=== PATIENT | male | born 1950 | race Caucasian/White ===

== ENCOUNTER → 2017-06-22 14:26 | Outpatient (CLI) | payer MEDICARE, OTHER, SELFPAY ==
--- NOTE | 2017-06-23 17:50 | DI.NM.S_ITS ---
DATE OF SERVICE: 06/22/2017 PROCEDURE: Exercise perfusion study. INDICATIONS: Atrial fibrillation with underlying diabetes mellitus, hypertension, hyperlipidemia. RADIOPHARMACEUTICAL: 26.0 mCi technetium-99m Myoview IV was injected at stress and 26.8 mCi technetium-99m Myoview IV was injected at rest. CARDIAC STRESS: Patient underwent exercise perfusion study under the supervision of an attending staff. He walked on Zeke protocol for 5 minutes 32 seconds achieved 93% of target heart rate with normal blood pressure response. Patient achieved function aerobic impairment of +25 and 7 METs of workload. Patient felt shortness of breath. Baseline rhythm was sinus. Stress EKG revealed some nonspecific ST-T changes. There were some intermittent PACs without any significant sustained supraventricular or ventricular arrhythmias. RAW DATA: There was motion of heart seen. Increased subdiaphragmatic activity. Increased soft tissue shadow around heart. Patient's weight is 251 pounds. GATED STUDY: Stress LV ejection fraction 68 and resting LV ejection fraction 67%. I don't see any obvious wall motion abnormalities. No transient ischemic dilatation. TID ratio is 0.88, which is within normal limits. Resting end- diastolic volume is 112 mL. Lung/heart ratio is 0.27, which is within normal limits. MYOCARDIAL PERFUSION SCAN: Stress supine, resting supine images revealed small- sized mildly decreased perfusion of distal inferior lateral wall which got resolved during prone images suggested that tissue attenuation artifact. Prone images revealed normal myocardial perfusion. CONCLUSION: I will call this study a normal myocardial perfusion study with evidence of diaphragmatic tissue attenuation artifact which got resolved during prone images. Overall left ventricular (LV) function is preserved. As far as perfusion scan is concerned, this is a low-risk myocardial perfusion scan. Arian Leong - TALENT ACQUISITION LEAD/yara/ab doc#: [id number]/job#: [id number] dd: 06/23/2017 12:45:00 dt: 06/23/2017 17:41:00 DICTATING MD/COPIES TO: Jarret Costa MD COPIES MNE: LUIS ARMANDO
== END ==
PROVIDERS: PCP Family Medicine; Visit Provider Internal Medicine Cardiovascular Disease
DX: I48.91 Unspecified atrial fibrillation (principal); E11.9 Type 2 diabetes mellitus without complications; I10 Essential (primary) hypertension; E78.5 Hyperlipidemia, unspecified
CPT/HCPCS: 78452; 93016; 93017; 93018; A9502

== ENCOUNTER → 2017-09-23 09:38 | Outpatient (CLI) | payer MEDICARE, OTHER, SELFPAY ==
[2017-09-23 10:24] LABS: Add Manual Diff / Slide Review NO; Basophils Percent Auto 0.7 % (0-2); Eosinophils Percent Auto 6.8 % (2-4); Hematocrit 40.6 % (41-53); Hemoglobin 13.8 g/dL (13.5-17.5); Lymphocytes Percent Auto 17.1 % (25-40); Mean Corpuscular HGB Conc 33.9 % (30-36); Mean Corpuscular Hemoglobin 29.9 PG (26-34); Mean Corpuscular Volume 88.3 fL (80-100); Monocytes Percent Auto 6.1 % (3-14); Neutrophils Absolute Auto 5100 /uL (3000-5900); Neutrophils Percent Auto 69.3 % (50-75); Platelet Count 212 X10^3/uL (150-400); Red Cell Distribution Width 14.8 % (11.6-14.8); White Blood Cell Count 7.4 X10^3/uL (4.5-11.0)
[2017-09-23 10:53] LABS: Hemoglobin A1C% w Est Avg Glu 6.2 % (4.0-6.0)
[2017-09-23 11:01] LABS: Alanine Aminotransferase 45 IU/L (21-72); Albumin Globulin Ratio 1.3 (1.0-2.8); Alkaline Phosphatase 65 U/L (38-126); Aspartate Aminotransferase 33 IU/L (17-59); Bilirubin Total 0.6 mg/dL (0.2-1.3); Blood Urea Nitrogen 19 mg/dL (9-20); Calcium 9.6 mg/dL (8.4-10.2); Carbon Dioxide 29 mmol/L (22-32); Chloride 103 mmol/L (98-107); Cholesterol 108 mg/dL (140-199); Estimated Glomerular Filt Rate > 60.0 mL/min (>60); Globulin 3.1 g/dL (1.7-4.1); Glucose 101 mg/dL (80-110); HDL Cholesterol 32 mg/dL (40-60); HEMOLYSIS < 15 (0-50); LDL Cholesterol Calculated 60 mg/dL (<100); Potassium 4.4 mmol/L (3.4-5.1); Sodium 142 mmol/L (137-145); Total Protein 7.1 g/dL (6.3-8.2); Triglycerides 78 mg/dL (35-150)
[2017-09-23 11:19] LABS: Creatinine Urine Random 116.4 mg/dL
[2017-09-23 11:24] LABS: Microalbumin Urine Random 0.7 mg/dL (0-1.6)
== END ==
PROVIDERS: PCP Family Medicine; Visit Provider Family Medicine
DX: E11.9 Type 2 diabetes mellitus without complications (principal); E78.2 Mixed hyperlipidemia
CPT/HCPCS: 36415; 80053; 80061; 82043; 82570; 83036; 85025

== ENCOUNTER → 2017-12-06 07:52 | Outpatient (CLI) | payer MEDICARE, OTHER, SELFPAY ==
[2017-12-06 09:48] LABS: Blood Urea Nitrogen 22 mg/dL (9-20); Calcium 9.3 mg/dL (8.4-10.2); Carbon Dioxide 25 mmol/L (22-32); Chloride 101 mmol/L (98-107); Estimated Glomerular Filt Rate > 60.0 mL/min (>60); Glucose 210 mg/dL (80-110); HEMOLYSIS < 15 (0-50); Potassium 4.1 mmol/L (3.4-5.1); Sodium 141 mmol/L (137-145)
== END ==
PROVIDERS: PCP Family Medicine; Visit Provider Internal Medicine Cardiovascular Disease
DX: I10 Essential (primary) hypertension (principal)
CPT/HCPCS: 36415; 80048

== ENCOUNTER → 2018-05-30 11:14 | Outpatient (CLI) | payer MEDICARE, OTHER, SELFPAY ==
[2018-05-30 12:22] LABS: Hemoglobin A1C% w Est Avg Glu 6.3 % (4.0-6.0)
[2018-05-30 12:26] LABS: Blood Urea Nitrogen 20 mg/dL (9-20); Calcium 9.7 mg/dL (8.4-10.2); Carbon Dioxide 25 mmol/L (22-32); Chloride 103 mmol/L (98-107); Estimated Glomerular Filt Rate > 60.0 mL/min (>60); Glucose 95 mg/dL (80-110); HEMOLYSIS < 15 (0-50); Potassium 4.1 mmol/L (3.4-5.1); Sodium 140 mmol/L (137-145)
[2018-05-30 12:44] LABS: Vitamin D 25 Hydroxy (D3) 50.1 ng/mL (30.0-100.0)
[2018-05-30 12:57] LABS: Prostate Specific Antigen Scrn 1.49 ng/mL (0.1-4.0)
== END ==
PROVIDERS: PCP Student in an Organized Health Care Education/Training Program; Visit Provider Internal Medicine Cardiovascular Disease
DX: I48.92 Unspecified atrial flutter (principal); E55.9 Vitamin D deficiency, unspecified; E11.9 Type 2 diabetes mellitus without complications; I10 Essential (primary) hypertension; Z12.5 Encounter for screening for malignant neoplasm of prostate
CPT/HCPCS: 36415; 80048; 82306; 83036; G0103

== ENCOUNTER → 2018-09-29 12:29 | Outpatient (CLI) | payer MEDICARE, OTHER, SELFPAY | PROVIDERS: PCP Student in an Organized Health Care Education/Training Program; Visit Provider Physician Assistant | DX: L02.01 Cutaneous abscess of face (principal) | CPT/HCPCS: 87070; 87077; 87147; 87186; 87205 ==

== ENCOUNTER 2018-10-04 13:01 | Day surgery (SDC) | payer MEDICARE, OTHER, SELFPAY ==
--- NOTE | 2018-10-04 | PATH_ITS ---
[facility] Accession Number: [id number] . 01 Material submitted: . PART A: colon - POLYP ASCENDING COLON X3 PART B: sigmoid colon - POLYP SIGMOID COLON . 02 Diagnosis: A. Biopsy, Polyps Ascending Colon: Tubular adenoma involving single biopsy fragment. Single polypoid-shaped fragment of colon mucosa associated with prominent mucosal lymphoid aggregate. Single fragment of normal appearing colon mucosa consistent with mucosal polypoid redundancy. . B. Biopsy, Polyp, Sigmoid Colon: Hyperplastic polyp. MRV/10/05/2018 . 02 Electronically signed: . Paul Estrella MD, Pathologist NPI- [id number] . 01 Gross description: . Part A: POLYP ASCENDING COLON X3: Received in formalin are 3 fragment(s) of castellanos, soft tissue measuring 0.1 x 0.1 x 0.1 cm to 0.3 x 0.3 x 0.3 cm which is entirely submitted and submitted entirely in 1 cassette(s) Part B: POLYP SIGMOID COLON: Received in formalin is 1 fragment(s) of castellanos, soft tissue measuring 0.3 x 0.2 x 0.2 cm which is entirely submitted and submitted entirely in 1 cassette(s) /DMC /DMC . 02 Pathologist provided ICD-10: D12.2 . 02 CPT . 770593, [id number] Performed at: 01 [facility] [address] [place] [address], [place], [place] [id number] MD Jameson Martin MD Phone: [phone] Performed at: 02 [facility] [address] [place], [place] [id number] MD Unique Trujillo MD Phone: [phone]
[2018-10-04 13:19] VITALS: BP 126/81; PULSE 79; RESP 16; TEMP 36.2; O2SAT 96; BMI 36.1
[2018-10-04] MEDS: SODIUM CHLORIDE 0.9% 1,000 ML 200 ML IV (13:30)
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
--- NOTE | 2018-10-04 14:06 | PM.OP.ENDO ---
Operative Date/Time/Diagnoses Date of procedure: 10/04/18 Time of procedure: 14:06 Pre-op diagnosis: See indication and findings Procedure & Clinicians Study performed: Colonoscopy Same procedure as scheduled: Yes Indications: Need for colorectal cancer screening Surgeon: Ana Mendoza Procedure Notes Procedure in detail: After informed consent was obtained the patient was placed in left lateral decubitus position. The video colonoscope was introduced the rectum slowly advanced cecum. On slow withdrawal mucosa was carefully examined. The scope was removed. The patient tolerated the procedure well. Blood loss none Complications none Sedation Total sedation time 23 minutes Fentanyl 100 mg Versed 4 mg IV titration Findings 1. Three ascending colon polyps from 2-5 mm in size all removed completely with Jumbo biopsy forceps 2. 6 mm sigmoid polyp Jumbo biopsy removed completely Otherwise negative colonoscopy to cecum Most likely Mr. Leong will need follow-up colonoscopy in 5 years He may restart his Eliquis in 2 days.
[2018-10-04 15:15] VITALS: BP 106/69; PULSE 70; RESP 16; TEMP 37; O2SAT 95
[2018-10-04 15:39] VITALS: BP 99/65; PULSE 68; RESP 16; TEMP 36.1; O2SAT 95
== END 2018-10-04 16:00 | disposition home or self-care (01) ==
LOC: ENDO 13:04
PROVIDERS: PCP Student in an Organized Health Care Education/Training Program; Visit Provider Internal Medicine Gastroenterology
PROC: 0DJD8ZZ Inspection of Lower Intestinal Tract, Via Natural or Artificial Opening Endoscopic (ICD-10-PCS; CPT 45378; principal; 2018-10-04 14:30)
DX: Z12.11 Encounter for screening for malignant neoplasm of colon (principal); K63.5 Polyp of colon; E11.9 Type 2 diabetes mellitus without complications; N40.1 Benign prostatic hyperplasia with lower urinary tract symptoms; R35.1 Nocturia; I10 Essential (primary) hypertension; E78.5 Hyperlipidemia, unspecified; Z79.84 Long term (current) use of oral hypoglycemic drugs; Z79.01 Long term (current) use of anticoagulants; D12.2 Benign neoplasm of ascending colon
CPT/HCPCS: 45380; 88305

== ENCOUNTER → 2018-11-21 09:29 | Outpatient (CLI) | payer MEDICARE, OTHER, SELFPAY ==
[2018-11-21 10:43] LABS: Hemoglobin A1C% w Est Avg Glu 6.5 % (4.0-6.0)
[2018-11-21 10:58] LABS: Blood Urea Nitrogen 20 mg/dL (9-20); Calcium 9.5 mg/dL (8.4-10.2); Carbon Dioxide 24 mmol/L (22-32); Chloride 105 mmol/L (98-107); Estimated Glomerular Filt Rate > 60.0 mL/min (>60); Glucose 124 mg/dL (80-110); HEMOLYSIS < 15 (0-50); Potassium 4.1 mmol/L (3.4-5.1); Sodium 141 mmol/L (137-145)
[2018-11-21 12:01] LABS: Creatinine Urine Random 95.1 mg/dL
[2018-11-21 12:05] LABS: Microalbumi Creatinin Ratio Ur 7.3 ug/mg CR (<30); Microalbumin Urine Random 0.7 mg/dL (0-1.6)
== END ==
PROVIDERS: PCP Student in an Organized Health Care Education/Training Program; Visit Provider Student in an Organized Health Care Education/Training Program
DX: E11.9 Type 2 diabetes mellitus without complications (principal); I10 Essential (primary) hypertension
CPT/HCPCS: 36415; 80048; 82043; 82570; 83036

== ENCOUNTER 2019-03-23 17:43 | Emergency (ER) | payer MEDICARE, OTHER, SELFPAY ==
[2019-03-23 18:15] VITALS: BP 146/69; PULSE 80; RESP 17; TEMP 36.4; O2SAT 98
--- NOTE | 2019-03-23 18:32 | DI.RAD.S_ITS ---
PROCEDURE: XR FINGER LT MIN 2V INDICATIONS: laceration TECHNIQUE: AP hand, 2 views of the left third finger(s) acquired. COMPARISON: None. FINDINGS: Bones: No fractures or dislocations. No suspicious bony lesions. Soft tissues: No suspicious soft tissue calcifications. A small 2 mm foreign body seen anterior to the third distal phalange. IMPRESSION: 1. No fracture. No osseous lesion. If symptoms and/or clinical suspicion for pathology persists, further assessment with repeat radiographs (7-10 days) or advanced imaging (e.g. CT, MRI or bone scan) may be helpful. 2. 2 mm radiodense foreign body. Dictated by: Natalie Bain MD, PhD on 03/23/2019 at 19:57 Approved by: Natalie Bain MD, PhD on 03/23/2019 at 19:58
[2019-03-23] MEDS: BACITRACIN OINT 0.9 GM PCKT 1 APPLIC TOP (18:56)
[2019-03-23] MEDS: LIDO 1%/SOD BICARB 8.4% (10ML) 10 ML SYRINGE INJ (18:56)
--- NOTE | 2019-03-23 19:17 | PC.NURSE ---
bleeding from left hand moderate, difficulty slowing. Estuardo YOGA COORDINATOR applied tourniquet at 1830 to left 3rd base of finger, bleeding stopped. ring removed from 4th finger, lac on palm of left hand bleeding controlled.
[2019-03-23] MEDS: BACITRACIN OINT 0.9 GM PCKT 2 APPLIC TOP (20:08)
--- NOTE | 2019-03-23 20:10 | PC.NURSE ---
Finger wound covered with bacitracin, tube gauze, finger splint, and coban. palm laceration covered with bacitracin, non-adherent pad, and kerlex.
[2019-03-23 20:42] VITALS: BP 132/76; PULSE 77; RESP 16; O2SAT 99
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
== END 2019-03-23 20:43 | disposition home or self-care (01) ==
PROVIDERS: Emergency Provider Nurse Practitioner Family; PCP Student in an Organized Health Care Education/Training Program
DX: S61.213A Laceration without foreign body of left middle finger without damage to nail, initial encounter (principal); S61.012A Laceration without foreign body of left thumb without damage to nail, initial encounter; W31.2XXA Contact with powered woodworking and forming machines, initial encounter
CPT/HCPCS: 12002; 73140; 99283; 99284

== ENCOUNTER → 2019-09-04 10:59 | Outpatient (CLI) | payer MEDICARE, OTHER, SELFPAY ==
[2019-09-04 12:29] LABS: Hemoglobin A1C% w Est Avg Glu 7.1 % (4.0-6.0)
[2019-09-04 12:30] LABS: Blood Urea Nitrogen 25 mg/dL (9-20); Calcium 9.9 mg/dL (8.4-10.2); Carbon Dioxide 25 mmol/L (22-32); Chloride 104 mmol/L (98-107); Estimated Glomerular Filt Rate > 60.0 mL/min (>60); Glucose 150 mg/dL (80-110); HEMOLYSIS < 15 (0-50); Potassium 4.4 mmol/L (3.4-5.1); Sodium 138 mmol/L (137-145)
[2019-09-04 14:08] LABS: Creatinine Urine Random 125.7 mg/dL
[2019-09-04 14:18] LABS: Microalbumi Creatinin Ratio Ur 6.3 ug/mg CR (<30); Microalbumin Urine Random 0.8 mg/dL (0-1.6)
== END ==
PROVIDERS: PCP Student in an Organized Health Care Education/Training Program; Referring Provider Student in an Organized Health Care Education/Training Program; Visit Provider Student in an Organized Health Care Education/Training Program
DX: E11.9 Type 2 diabetes mellitus without complications (principal); I10 Essential (primary) hypertension
CPT/HCPCS: 36415; 80048; 82043; 82570; 83036

== ENCOUNTER 2019-09-19 03:01 | Emergency (ER) | payer MEDICARE, OTHER, SELFPAY ==
[2019-09-19] VITALS (19 sets, daily range): BP systolic 116–170; BP diastolic 55–80; PULSE 63–81; RESP 15–18; TEMP 36.2; O2SAT 95–97; BMI 30.1
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
[2019-09-19] MEDS: methylPREDNISolone 125 MG/2 ML VIAL IV (03:26)
[2019-09-19] MEDS: KETOROLAC 60 MG/2 ML VIAL 15 MG IV (03:26)
[2019-09-19] MEDS: diphenhydrAMINE 50 MG/ML VIAL 25 MG IV (03:26)
[2019-09-19] MEDS: SODIUM CHLORIDE 0.9% 1,000 ML 150 ML IV (03:27)
[2019-09-19] MEDS: FAMOTIDINE 20 MG/50 ML PIGGYBACK 200 MG IV (03:27)
[2019-09-19 03:28] LABS: Add Manual Diff / Slide Review NO; Basophils Absolute Auto 100 /uL (0-100); Basophils Percent Auto 0.5 % (0-2); Eosinophils Absolute Auto 0 /uL (0-450); Eosinophils Percent Auto 0.2 % (2-4); Hematocrit 40.6 % (41-53); Hemoglobin 13.8 g/dL (13.5-17.5); Lymphocytes Absolute Auto 800 /uL (1100-4500); Lymphocytes Percent Auto 7.6 % (25-40); Mean Corpuscular HGB Conc 33.9 % (30-36); Mean Corpuscular Hemoglobin 29.8 PG (26-34); Monocytes Absolute Auto 300 /uL (0-900); Monocytes Percent Auto 2.5 % (3-14); Neutrophils Absolute Auto 9700 /uL (1500-7000); Neutrophils Percent Auto 89.2 % (50-75); Platelet Count 202 X10^3/uL (150-400); Red Blood Cell Count 4.62 X10^6/uL (4.5-5.9); Red Cell Distribution Width 14.8 % (11.6-14.8); White Blood Cell Count 10.9 X10^3/uL (4.5-11.0)
[2019-09-19 03:42] LABS: Appearance Urine UA CLOUDY; Bilirubin Urine UA NEGATIVE (NEGATIVE); Glucose Urine UA NEGATIVE (Negative); Ketones Urine UA TRACE (NEGATIVE); Leukocyte Esterase Urine UA TRACE (NEGATIVE); Nitrite Urine UA NEGATIVE (Negative); Occult Blood Urine UA 3+ (Negative); Protein Urine UA 1+ (Negative); Urobilinogen Urine UA 0.2 E.U./dL (0.2); pH Urine UA 5.5 (4.5-8.0)
[2019-09-19 03:43] LABS: Color Urine UA BROWN
[2019-09-19 03:45] LABS: Bacteria Urine Many (>30); RBC Urine >100/HPF (0-5/HPF); WBC Urine 0-1/HPF (0-5/HPF)
[2019-09-19 03:46] LABS: Culture Indicated Urine Specimen Cultured
--- NOTE | 2019-09-19 03:52 | DI.CT.S_ITS ---
PROCEDURE: CT ABDOMEN PELVIS W CON INDICATIONS: severe abdominal pain, decreased BM, N/V TECHNIQUE: After the administration of intravenous contrast, 5 mm thick sections acquired from the diaphragm to the symphysis. 5 mm coronal and sagittal reformats were acquired. For radiation dose reduction, the following was used: automated exposure control, adjustment of mA and/or kV according to patient size. COMPARISON: None. FINDINGS: Image quality: Excellent. ABDOMEN: Lung bases: Lung bases are clear. Heart size is normal. Solid organs: Liver is normal in size and enhancement. Gallbladder negative . Biliary system is non dilated. Pancreas enhances normally. Spleen is normal in size and enhancement. No adrenal nodules. Bilateral nephrolithiasis is seen measuring up to 5-6 mm on the right in the upper pole and 8 mm in the left kidney. There is age-indeterminate bilateral perinephric stranding. Mild dilatation of the right ureter related to approximately 3 calculi seen at the right ureterovesical junction the largest measuring up to 5 mm. Peritoneum and bowel: Bowel loops demonstrate normal wall thickness and caliber. No free fluid or air. Colonic diverticulosis is seen without evidence of acute complication. Normal appendix. Nodes and vessels: No retroperitoneal or mesenteric adenopathy by size criteria. Aorta and inferior vena cava are normal in size. Small periumbilical fat containing hernia. PELVIS: Genitourinary: Bladder wall thickness is normal. Fat containing right inguinal hernia is present. Bones: No vertebral body compression fracture. Spondylytic changes and facet arthropathy. IMPRESSION: Mildly obstructive multiple (3) calculi seen at the right ureterovesical junction. Additional bilateral nephrolithiasis as described above. Additional chronic and incidental findings as above. Findings concordant with the preliminary study interpretation provided at the time of the exam. Dictated by: Emmanuel Lincoln M.D. on 09/19/2019 at 8:54 Approved by: Emmanuel Lincoln M.D. on 09/19/2019 at 9:04
[2019-09-19 03:58] LABS: Alanine Aminotransferase 57 IU/L (<50); Albumin 4.3 g/dL (3.5-5.0); Albumin Globulin Ratio 1.2 (1.0-2.8); Alkaline Phosphatase 70 U/L (38-126); Aspartate Aminotransferase 43 IU/L (17-59); BUN Creatinine Ratio 19.4 (6-22); Bilirubin Total 0.7 mg/dL (0.2-1.3); Blood Urea Nitrogen 31 mg/dL (9-20); Calcium 10.2 mg/dL (8.4-10.2); Carbon Dioxide 23 mmol/L (22-32); Chloride 103 mmol/L (98-107); Estimated Glomerular Filt Rate 42.9 mL/min (>60); Globulin 3.6 g/dL (1.7-4.1); Glucose 208 mg/dL (80-110); HEMOLYSIS < 15 (0-50); Lipase 105 U/L (23-300); Potassium 4.4 mmol/L (3.4-5.1); Sodium 137 mmol/L (137-145); Total Protein 7.9 g/dL (6.3-8.2)
[2019-09-19] MEDS: CEFTRIAXONE 1 GM/50 ML FROZ.PIGGY IV (06:11)
[2019-09-19] MEDS: METOPROLOL ER 25 MG TABLET PO (06:14)
== END 2019-09-19 12:06 | disposition short-term general hospital (02) ==
PROVIDERS: Emergency Provider Emergency Medicine; PCP Student in an Organized Health Care Education/Training Program
DX: N13.9 Obstructive and reflux uropathy, unspecified (principal); N17.9 Acute kidney failure, unspecified; R11.2 Nausea with vomiting, unspecified; K59.00 Constipation, unspecified; I48.92 Unspecified atrial flutter; Z79.01 Long term (current) use of anticoagulants; I10 Essential (primary) hypertension
CPT/HCPCS: 36415; 74177; 80053; 81001; 83690; 85025; 87086; 96361; 96365; 96367; 96375; 99284; J1200; J1885; J2930; Q9967

== ENCOUNTER → 2019-09-25 12:00 | Outpatient (CLI) | payer MEDICARE, OTHER, SELFPAY ==
[2019-09-25 12:41] LABS: Hematocrit 38.5 % (41-53); Hemoglobin 12.8 g/dL (13.5-17.5); Mean Corpuscular HGB Conc 33.3 % (30-36); Mean Corpuscular Hemoglobin 29.2 PG (26-34); Mean Corpuscular Volume 87.6 fL (80-100); Platelet Count 239 X10^3/uL (150-400); Red Cell Distribution Width 14.7 % (11.6-14.8); White Blood Cell Count 9.1 X10^3/uL (4.5-11.0)
[2019-09-25 13:33] LABS: BUN Creatinine Ratio 17.7 (6-22); Blood Urea Nitrogen 23 mg/dL (9-20); Calcium 9.3 mg/dL (8.4-10.2); Carbon Dioxide 28 mmol/L (22-32); Chloride 104 mmol/L (98-107); Estimated Glomerular Filt Rate 54.6 mL/min (>60); Glucose 134 mg/dL (80-110); HEMOLYSIS < 15 (0-50); Potassium 4.2 mmol/L (3.4-5.1); Sodium 138 mmol/L (137-145)
== END ==
PROVIDERS: PCP Student in an Organized Health Care Education/Training Program; Referring Provider Student in an Organized Health Care Education/Training Program; Visit Provider Student in an Organized Health Care Education/Training Program
DX: N13.9 Obstructive and reflux uropathy, unspecified (principal); N17.9 Acute kidney failure, unspecified; R31.9 Hematuria, unspecified; E11.9 Type 2 diabetes mellitus without complications
CPT/HCPCS: 36415; 80048; 83036; 85027

== ENCOUNTER → 2019-10-31 08:56 | Outpatient (CLI) | payer MEDICARE, OTHER, SELFPAY ==
[2019-10-31 09:49] LABS: Blood Urea Nitrogen 22 mg/dL (9-20); Estimated Glomerular Filt Rate > 60.0 mL/min (>60)
== END ==
PROVIDERS: PCP Student in an Organized Health Care Education/Training Program; Referring Provider Urology; Visit Provider Urology
DX: N28.9 Disorder of kidney and ureter, unspecified (principal)
CPT/HCPCS: 36415; 82565; 84520

== ENCOUNTER → 2020-04-04 13:48 | Outpatient (CLI) | payer MEDICARE, OTHER, SELFPAY ==
[2020-04-04 17:05] LABS: Hemoglobin A1C% w Est Avg Glu 7.2 % (4.0-6.0)
== END ==
PROVIDERS: PCP Student in an Organized Health Care Education/Training Program; Referring Provider Student in an Organized Health Care Education/Training Program; Visit Provider Student in an Organized Health Care Education/Training Program
DX: E11.9 Type 2 diabetes mellitus without complications (principal)
CPT/HCPCS: 36415; 83036

== ENCOUNTER → 2020-09-10 14:55 | Outpatient (CLI) | payer MEDICARE, OTHER, SELFPAY ==
[2020-09-10 16:15] LABS: Alanine Aminotransferase 46 IU/L (<50); Albumin 4.2 g/dL (3.5-5.0); Albumin Globulin Ratio 1.2 (1.0-2.8); Alkaline Phosphatase 68 U/L (38-126); Aspartate Aminotransferase 41 IU/L (17-59); BUN Creatinine Ratio 20.6 (6-22); Bilirubin Total 0.6 mg/dL (0.2-1.3); Blood Urea Nitrogen 21 mg/dL (9-20); Carbon Dioxide 27 mmol/L (22-32); Chloride 102 mmol/L (98-107); Cholesterol 129 mg/dL (140-199); Estimated Glomerular Filt Rate > 60.0 mL/min (>60); Globulin 3.5 g/dL (1.7-4.1); Glucose 172 mg/dL (80-110); HDL Cholesterol 32 mg/dL (40-60); HEMOLYSIS < 15 (0-50); LDL Cholesterol Calculated 57 mg/dL (<100); Potassium 4.6 mmol/L (3.4-5.1); Sodium 138 mmol/L (137-145); Total Protein 7.7 g/dL (6.3-8.2); Triglycerides 202 mg/dL (35-150)
[2020-09-10 18:29] LABS: Microalbumi Creatinin Ratio Ur 10.4 ug/mg CR (<30); Microalbumin Urine Random 1.1 mg/dL (0-1.6)
== END ==
PROVIDERS: PCP Student in an Organized Health Care Education/Training Program; Referring Provider Nurse Practitioner; Visit Provider Nurse Practitioner
DX: E11.9 Type 2 diabetes mellitus without complications (principal); E78.00 Pure hypercholesterolemia, unspecified
CPT/HCPCS: 80053; 80061; 82043; 82570; 83036

== ENCOUNTER → 2020-09-22 10:59 | Outpatient (CLI) | payer MEDICARE, OTHER, SELFPAY ==
[2020-09-22 13:32] LABS: Cholesterol 115 mg/dL (140-199); HDL Cholesterol 27 mg/dL (40-60); LDL Cholesterol Calculated 69 mg/dL (<100); Triglycerides 93 mg/dL (35-150)
== END ==
PROVIDERS: PCP Student in an Organized Health Care Education/Training Program; Referring Provider Nurse Practitioner; Visit Provider Nurse Practitioner
DX: E78.00 Pure hypercholesterolemia, unspecified (principal)
CPT/HCPCS: 36415; 80061

== ENCOUNTER → 2020-10-08 15:37 | Outpatient (CLI) | payer MEDICARE, OTHER, SELFPAY ==
--- NOTE | 2020-10-08 15:46 | DI.RAD.S_ITS ---
PROCEDURE: XR FOOT RT MIN 3V INDICATIONS: Pain in foot TECHNIQUE: 3 views of the foot were acquired. COMPARISON: None. FINDINGS: Bones: No fractures or dislocations. No suspicious bony lesions. Posterior and plantar calcaneal spurs noted with calcification in the Achilles tendon Soft tissues: No tibiotalar joint effusion. Achilles tendon appears normal. IMPRESSION: Degenerative enthesopathy without fracture or foreign body Approved by: Yoni Bhakta M.D. on 10/08/2020 at 15:30
== END ==
PROVIDERS: PCP Student in an Organized Health Care Education/Training Program; Referring Provider Nurse Practitioner; Visit Provider Nurse Practitioner
DX: M79.671 Pain in right foot (principal); M77.31 Calcaneal spur, right foot
CPT/HCPCS: 73630

== ENCOUNTER → 2020-11-13 15:25 | Outpatient (CLI) | payer MEDICARE, OTHER, SELFPAY ==
--- NOTE | 2020-11-13 15:26 | DI.US.S_ITS ---
PROCEDURE: US PERIPH VENOUS LOW EXTREM RT INDICATIONS: SWELLING AND PAIN TECHNIQUE: Real-time imaging, as well as color and pulse Doppler interrogation, were performed of the lower extremity deep veins from the inguinal ligament to the popliteal fossa. COMPARISON: None. FINDINGS: The common femoral, femoral and popliteal veins are normally compressible, and free of intraluminal thrombus. Color and pulse Doppler demonstrate normal phasic intraluminal flow. There is normal augmentation response to distal compression maneuver. Soft tissue edema can be seen at the area of clinical concern involving the dorsal foot. IMPRESSION: Negative for deep venous thrombosis. Dictated by: Zheng Fuentes M.D. on 11/13/2020 at 15:31 Approved by: Zheng Fuentes M.D. on 11/13/2020 at 15:31
== END ==
PROVIDERS: PCP Student in an Organized Health Care Education/Training Program; Referring Provider Nurse Practitioner Family; Visit Provider Nurse Practitioner Family
DX: M79.89 Other specified soft tissue disorders (principal)
CPT/HCPCS: 93971

== ENCOUNTER → 2021-01-26 09:35 | Outpatient (CLI) | payer MEDICARE, OTHER, SELFPAY ==
[2021-01-26 12:26] LABS: Uric Acid 7.3 mg/dL (3.5-8.5)
== END ==
PROVIDERS: PCP Student in an Organized Health Care Education/Training Program; Referring Provider Podiatrist; Visit Provider Podiatrist
DX: M79.671 Pain in right foot (principal); M79.672 Pain in left foot
CPT/HCPCS: 36415; 84550

== ENCOUNTER → 2021-03-19 10:23 | Outpatient (CLI) | payer MEDICARE, OTHER, SELFPAY ==
[2021-03-19 11:16] LABS: Hemoglobin A1C% w Est Avg Glu 7.8 % (4.0-6.0)
== END ==
PROVIDERS: PCP Student in an Organized Health Care Education/Training Program; Referring Provider Student in an Organized Health Care Education/Training Program; Visit Provider Student in an Organized Health Care Education/Training Program
DX: E11.9 Type 2 diabetes mellitus without complications (principal)
CPT/HCPCS: 36415; 83036

== ENCOUNTER → 2021-06-09 09:52 | Outpatient (CLI) | payer MEDICARE, OTHER, SELFPAY ==
[2021-06-09 10:51] LABS: Hemoglobin A1C% w Est Avg Glu 7.9 % (4.0-6.0)
== END ==
PROVIDERS: PCP Student in an Organized Health Care Education/Training Program; Referring Provider Student in an Organized Health Care Education/Training Program; Visit Provider Student in an Organized Health Care Education/Training Program
DX: E11.9 Type 2 diabetes mellitus without complications (principal)
CPT/HCPCS: 36415; 83036

== ENCOUNTER → 2021-09-09 09:50 | Outpatient (CLI) | payer MEDICARE, OTHER, SELFPAY ==
[2021-09-09 11:13] LABS: Uric Acid 5.2 mg/dL (3.5-8.5)
[2021-09-09 11:26] LABS: Hemoglobin A1C% w Est Avg Glu 7.7 % (4.0-6.0)
[2021-09-09 15:03] LABS: Creatinine Urine Random 132.4 mg/dL
[2021-09-09 15:07] LABS: Microalbumi Creatinin Ratio Ur 28.7 ug/mg CR (<30); Microalbumin Urine Random 3.8 mg/dL (0-1.6)
== END ==
PROVIDERS: PCP Student in an Organized Health Care Education/Training Program; Referring Provider Student in an Organized Health Care Education/Training Program; Visit Provider Student in an Organized Health Care Education/Training Program
DX: E11.9 Type 2 diabetes mellitus without complications (principal); M10.9 Gout, unspecified
CPT/HCPCS: 36415; 82043; 82570; 83036; 84550

== ENCOUNTER → 2022-01-12 10:02 | Outpatient (CLI) | payer MEDICARE, OTHER, SELFPAY ==
[2022-01-12 18:13] LABS: Hemoglobin A1C% w Est Avg Glu 6.9 % (4.0-6.0)
[2022-01-14 16:48] LABS: Hep C Virus Ab w/Reflex Quant NEGATIVE s/c (NEGATIVE)
== END ==
PROVIDERS: PCP Student in an Organized Health Care Education/Training Program; Referring Provider Student in an Organized Health Care Education/Training Program; Visit Provider Student in an Organized Health Care Education/Training Program
DX: E11.9 Type 2 diabetes mellitus without complications (principal); Z11.59 Encounter for screening for other viral diseases
CPT/HCPCS: 36415; 83036; 86803

== ENCOUNTER → 2022-03-25 08:39 | Outpatient (CLI) | payer MEDICARE, OTHER, SELFPAY ==
--- NOTE | 2022-03-30 14:18 | PM.PFT.1 ---
Pulmonary Function Test Referral & Results Date Patient Seen: 03/25/22 Requesting provider: Jarret Costa Results: The spirometry demonstrates an FVC of 3.84 L which is 88% of predicted. The FEV1 was measured at 3.05 L which is 97% of predicted. The FEV1/FVC ratio was 80 which is 108% of predicted. Following the administration of bronchodilator there was 44% improvement in FEF 25-75%. Lung volumes show an SVC of 3.36 L which is 74% of predicted. The diffusing capacity was measured at 32.63 which is 100% of predicted. The maximum voluntary ventilation was normal Interpretation: This study demonstrates probably normal pulmonary function. There may be a minimal reduction in lung volumes suggesting the presence of very mild restrictive lung disease, but otherwise PFTs are clearly normal Clinical correlation suggested
== END ==
PROVIDERS: Family Provider Student in an Organized Health Care Education/Training Program; PCP Student in an Organized Health Care Education/Training Program; Referring Provider Internal Medicine Cardiovascular Disease; Visit Provider Internal Medicine Cardiovascular Disease
DX: Z79.899 Other long term (current) drug therapy (principal); Z87.891 Personal history of nicotine dependence; J98.8 Other specified respiratory disorders
CPT/HCPCS: 94060; 94726; 94729

== ENCOUNTER → 2022-03-26 07:40 | Outpatient (CLI) | payer MEDICARE, OTHER, SELFPAY ==
--- NOTE | 2022-03-26 | DI.ECHO.S_ITS ---
[facility]+ [facility] +---------+ : : [address] : : : : [id number] : : : : Phone: [phone]+ Echocardiogram Report + + :Name: MEKHI ZULUAGA Study Date: 03/26/2022 Height: 70 in : :[facility] : Weight: 252 lb : : Gender: Male BSA: 2.3 m2 : :: 1950 Age: 72 yrs BP: 146/73 mmHg: :Reason For Study: Tachycardia : :Ordering Physician: Satnam : :Reed Tay Performed By: Elsie Danielle : :Referring: SATNAM TAY : + + Interpretation Summary The left ventricle is normal in size. The ejection fraction is estimated to be 55-60%. Patient had cardiac MRI on July 15, 2021 that time LV ejection fraction 35%. Patient underwent A-fib ablation on August 12, 2021. In this study patient is in sinus rhythm. The right ventricle is mild to moderately dilated. The right ventricular systolic function is normal. There is mild mitral regurgitation. There is mild tricuspid regurgitation. The right ventricular systolic pressure is estimated to be at least 40 mmHg based on an estimated right atrial pressure of 3 mm Hg. Procedure: A two-dimensional transthoracic echocardiogram with color flow and Doppler was performed. The study quality was technically difficult. The patient was in sinus bradycardia with heart rates between 58-65 bpm during the exam. Left Ventricle: The left ventricle is normal in size. There is mild concentric left ventricular hypertrophy. There is no thrombus. The ejection fraction is estimated to be 55-60%. There are no obvious focal wall motion abnormalities noted but poor endocardial definition reduces the sensitivity for the detection of such. Diastolic parameters suggest a pseudonormalization pattern, consistent with probable elevated filling pressures. Right Ventricle: The right ventricle is mild to moderately dilated. The right ventricular systolic function is normal. Atria: The left atrium is mildly dilated. The right atrium is normal in size. There is no Doppler evidence for an interatrial shunt. Mitral Valve: The mitral valve is normal. There is mild mitral regurgitation. Aortic Valve: The aortic valve is trileaflet. The aortic valve opens well. There is discrete nodular thickening of the non- coronary cusp. There is no aortic valve stenosis. No aortic regurgitation is present. Tricuspid Valve: The tricuspid valve is normal. There is mild tricuspid regurgitation. The right ventricular systolic pressure is estimated to be at least 40 mmHg based on an estimated right atrial pressure of 3 mm Hg. Pulmonic Valve: The pulmonic valve leaflets are thin and pliable; valve motion is normal. There is a trace or physiologic amount of pulmonic regurgitation. Great Vessels: The ascending aorta is normal in size. The IVC is of normal diameter and collapses greater than 50% with a sniff. This suggests a low right atrial pressure of 3 mm Hg. Pericardium/ Pleura There is no pericardial effusion. There is no pleural effusion. MMode/2D Measurements & Calculations LVIDd: 4.9 cm LVOT diam: 2.1 cm LVIDs: 3.4 cm Ao root diam: 3.3 cm FS: 32.1 % asc Aorta Diam: 3.4 cm EPSS: 0.58 cm IVSd: 1.2 cm LVPWd: 1.2 cm LV waters. diameter/BSA (cm/m^2): 2.1 LV sys. diameter/BSA (cm/m^2): 1.5 LA A4 area: 23.2 cm2 RA long axis: 5.1 cm LA length (vol): 5.9 cm RA area: 18.0 cm2 RA vol: 54.3 ml RA : 23.6 ml/m2 IVC diam: 1.9 cm RVD1 (basal): 5.1 cm TAPSE: 1.9 cm Doppler Measurements & Calculations Ao V2 max: 142.3 cm/sec LVOT Max Sathish: 91.8 cm/sec Ao V2 mean: 111.5 cm/sec LV V1 max P.4 mmHg Ao max P.1 mmHg LV V1 VTI: 18.9 cm Ao mean P.3 mmHg YANELI(I,D): 2.1 cm2 Ao V2 VTI: 30.5 cm YANELI(V,D): 2.2 cm2 sev ratio: 0.62 YANELI indexed to BSA (cm^2/m^2): 0.92 MV E max sathish: 89.7 cm/sec TR max sathish: 302.4 cm/sec MV A max sathish: 52.0 cm/sec TR max P.6 mmHg MV E/A: 1.7 PA V2 max: 75.4 cm/sec Med Peak E' Sathish: 5.9 cm/sec PA V2 mean: 54.5 cm/sec E/E' med: 15.2 PA mean P.3 mmHg Lat Peak E' Sathish: 10.7 cm/sec E/E' lat: 8.4 E/e' average: 11.8 MV dec time: 0.18 sec MVA(VTI): 2.3 cm2 MV V2 mean: 48.5 cm/sec SV(LVOT): 64.6 ml MV mean P.1 mmHg MV V2 VTI: 27.9 cm Reading Physician:05:53 PM
== END ==
PROVIDERS: Family Provider Student in an Organized Health Care Education/Training Program; PCP Student in an Organized Health Care Education/Training Program; Referring Provider Internal Medicine Cardiovascular Disease; Visit Provider Internal Medicine Cardiovascular Disease
DX: I08.1 Rheumatic disorders of both mitral and tricuspid valves (principal); R00.0 Tachycardia, unspecified; I43 Cardiomyopathy in diseases classified elsewhere
CPT/HCPCS: 93306

== ENCOUNTER → 2022-05-27 09:47 | Outpatient (CLI) | payer MEDICARE, OTHER, SELFPAY ==
[2022-05-27 11:34] LABS: Alanine Aminotransferase 52 IU/L (<50); Albumin 4.3 g/dL (3.5-5.0); Albumin Globulin Ratio 1.4 (1.0-2.8); Alkaline Phosphatase 68 U/L (38-126); Aspartate Aminotransferase 41 IU/L (17-59); BUN Creatinine Ratio 22.4 (6-22); Bilirubin Total 0.6 mg/dL (0.2-1.3); Blood Urea Nitrogen 26 mg/dL (9-20); Calcium 9.5 mg/dL (8.4-10.2); Carbon Dioxide 29 mmol/L (22-32); Chloride 101 mmol/L (98-107); Cholesterol 138 mg/dL (140-199); Estimated Glomerular Filt Rate > 60 mL/min (>60); Globulin 3.1 g/dL (1.7-4.1); Glucose 144 mg/dL (80-110); HDL Cholesterol 39 mg/dL (40-60); HEMOLYSIS < 15 (0-50); LDL Cholesterol Calculated 79 mg/dL (<100); Potassium 4.3 mmol/L (3.4-5.1); Sodium 138 mmol/L (137-145); Total Protein 7.4 g/dL (6.3-8.2); Triglycerides 101 mg/dL (35-150); Uric Acid 5.6 mg/dL (3.5-8.5)
[2022-05-27 11:34] LABS: Creatinine Urine Random 113.7 mg/dL
[2022-05-27 11:37] LABS: Microalbumi Creatinin Ratio Ur 18.4 ug/mg CR (<30); Microalbumin Urine Random 2.1 mg/dL (0-1.6)
== END ==
PROVIDERS: Family Provider Student in an Organized Health Care Education/Training Program; PCP Student in an Organized Health Care Education/Training Program; Referring Provider Student in an Organized Health Care Education/Training Program; Visit Provider Student in an Organized Health Care Education/Training Program
DX: E11.69 Type 2 diabetes mellitus with other specified complication (principal); E78.5 Hyperlipidemia, unspecified; I10 Essential (primary) hypertension; M10.9 Gout, unspecified
CPT/HCPCS: 36415; 80053; 80061; 82043; 82570; 83036; 84550

== ENCOUNTER → 2022-07-13 10:42 | Outpatient (CLI) | payer MEDICARE, OTHER, SELFPAY ==
[2022-07-14 07:36] LABS: Fructosamine 239 umol/L (0-285)
== END ==
PROVIDERS: Family Provider Student in an Organized Health Care Education/Training Program; PCP Pediatrics; Referring Provider Student in an Organized Health Care Education/Training Program; Visit Provider Student in an Organized Health Care Education/Training Program
DX: E11.9 Type 2 diabetes mellitus without complications (principal)
CPT/HCPCS: 36415; 82985

== ENCOUNTER 2022-08-16 10:16 | Emergency (ER) | payer MEDICARE, OTHER, SELFPAY ==
[2022-08-16 10:20] VITALS: BP 172/72; PULSE 67; RESP 18; TEMP 36.9; O2SAT 99; BMI 36.0
--- NOTE | 2022-08-16 10:25 | DI.US.S_ITS ---
PROCEDURE: US SCROTUM INDICATIONS: LEFT TESTICULAR SWELLING SINCE TUESDAY TECHNIQUE: Real-time scanning was performed of the scrotum and testicles, with image documentation. Color and pulse Doppler interrogation was performed of both testicles. COMPARISON: None. FINDINGS: Right: Testicle is normal in size at 4.7 x 2.8 x 2.6 cm, and homogenous in echotexture. Epididymis is normal in overall size and morphology. No significant hydrocele or varicoceles. Overlying scrotal skin is normal in thickness. Left: Testicle is normal in size at 3.5 x 3.2 x 2.6 cm, and homogeneous in echotexture. Epididymis is normal in overall size and morphology. Small hydrocele with multiple septations. No varicoceles. Overlying scrotal skin is normal in thickness. Doppler: Color and pulse Doppler demonstrate normal and symmetric arterial flow in both testicles. IMPRESSION: 1. No significant hyperemia to suggest epididymitis. Scrotal wall is within normal limits. 2. Small right hydrocele with multiple septations. 3. No varicocele. Dictated by: Edward Sawyer M.D. on 08/16/2022 at 11:19 Approved by: Edward Sawyer M.D. on 08/16/2022 at 11:23
[2022-08-16 10:47] LABS: Bacteria Urine Occasional (0-1); Culture Indicated Urine Cult Not Indicated; RBC Urine 10-30/HPF (0-5/HPF); Squamous Epithelial Cell Urine 0-1 /HPF (0-5/HPF); WBC Urine 1-5/HPF (0-5/HPF)
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
[2022-08-16 11:58] VITALS: BP 121/58; PULSE 65; RESP 16; O2SAT 97
== END 2022-08-16 12:13 | disposition home or self-care (01) ==
PROVIDERS: Emergency Medicine; Emergency Provider Physician Assistant; Family Provider Student in an Organized Health Care Education/Training Program; PCP Student in an Organized Health Care Education/Training Program
DX: N49.2 Inflammatory disorders of scrotum (principal)
CPT/HCPCS: 76870; 81003; 81015; 87086; 99283

== ENCOUNTER → 2022-11-16 14:02 | Outpatient (CLI) | payer MEDICARE, OTHER, SELFPAY ==
[2022-11-16 14:34] LABS: Add Manual Diff / Slide Review NO; Basophils Absolute Auto 100 /uL (0-100); Basophils Percent Auto 0.9 % (0-2); Eosinophils Absolute Auto 100 /uL (0-450); Eosinophils Percent Auto 1.9 % (2-4); Hematocrit 39.3 % (41-53); Hemoglobin 13.2 g/dL (13.5-17.5); Lymphocytes Absolute Auto 1500 /uL (1100-4500); Lymphocytes Percent Auto 22.7 % (25-40); Mean Corpuscular HGB Conc 33.5 % (30-36); Mean Corpuscular Hemoglobin 29.4 PG (26-34); Mean Corpuscular Volume 87.9 fL (80-100); Monocytes Absolute Auto 400 /uL (0-900); Monocytes Percent Auto 6.2 % (3-14); Neutrophils Absolute Auto 4600 /uL (1500-7000); Neutrophils Percent Auto 68.3 % (50-75); Platelet Count 216 X10^3/uL (150-400); Red Blood Cell Count 4.47 X10^6/uL (4.5-5.9); Red Cell Distribution Width 15.3 % (11.6-14.8); White Blood Cell Count 6.8 X10^3/uL (4.5-11.0)
[2022-11-16 15:03] LABS: Alanine Aminotransferase 62 IU/L (<50); Albumin 4.3 g/dL (3.5-5.0); Albumin Globulin Ratio 1.2 (1.0-2.8); Alkaline Phosphatase 67 U/L (38-126); Aspartate Aminotransferase 47 IU/L (17-59); BUN Creatinine Ratio 19.8 (6-22); Bilirubin Total 0.4 mg/dL (0.2-1.3); Blood Urea Nitrogen 26 mg/dL (9-20); Calcium 10.1 mg/dL (8.4-10.2); Carbon Dioxide 28 mmol/L (22-32); Chloride 102 mmol/L (98-107); Estimated Glomerular Filt Rate 57 mL/min (>60); Globulin 3.5 g/dL (1.7-4.1); Glucose 103 mg/dL (80-110); HEMOLYSIS < 15 (0-50); Potassium 4.2 mmol/L (3.4-5.1); Sodium 139 mmol/L (137-145); Total Protein 7.8 g/dL (6.3-8.2)
== END ==
PROVIDERS: Family Provider Student in an Organized Health Care Education/Training Program; PCP Student in an Organized Health Care Education/Training Program; Referring Provider Orthopaedic Surgery Foot and Ankle Surgery; Visit Provider Orthopaedic Surgery Foot and Ankle Surgery
DX: Z01.812 Encounter for preprocedural laboratory examination (principal)
CPT/HCPCS: 36415; 80053; 85025

== ENCOUNTER 2022-11-26 12:23 | Day surgery (SDC) | payer MEDICARE, OTHER, SELFPAY ==
[2022-11-22 13:15] VITALS: BMI 37.3
[2022-11-26] VITALS (11 sets, daily range): BP systolic 94–140; BP diastolic 43–87; PULSE 52–71; RESP 10–20; TEMP 35.9–36.3; O2SAT 94–98; BMI 35.4
--- NOTE | 2022-11-26 06:00 | DI.RAD.S_ITS ---
PROCEDURE: XR KNEE LT 1TO2V INDICATIONS: postop TECHNIQUE: 2 view(s) of the knee acquired. COMPARISON: [facility], CR, XR KNEE 4+ VIEWS LEFT, 01/13/2022, 15:39. FINDINGS: Bones: Patient is status post knee joint arthroplasty. Hardware components are in expected positions. Visualized bony structures are intact. Soft tissues: Overlying postoperative changes are noted. IMPRESSION: Status post knee arthroplasty. Dictated by: Shonna Rosales M.D. on 11/27/2022 at 9:41 Approved by: Shonna Rosales M.D. on 11/27/2022 at 9:41
[2022-11-26] MEDS: PREGABALIN 75 MG CAPSULE PO (13:28)
[2022-11-26] MEDS: CELECOXIB 200 MG CAPSULE PO (13:28)
[2022-11-26] MEDS: ACETAMINOPHEN 325 MG TABLET 975 MG PO (13:28)
[2022-11-26] MEDS: LACTATED RINGERS 1,000 ML 42 ML IV ×2 (13:28→16:54)
--- NOTE | 2022-11-26 14:25 | PM.PREOP ---
Pre-operative Note Interval Note History & Physical reviewed/Exam performed by Physician: Yes Changes to H&P: No
--- NOTE | 2022-11-26 14:39 | SUR.PREOP ---
Block start time [1430] . Monitoring initiated and maintained throughout procedure. Oxygen and medications given per anesthesiologist instructions. Patient remained stable throughout procedure, no adverse reactions noted. Block end time [1436].
--- NOTE | 2022-11-26 14:59 | PM.OP.1 ---
Operative Date/Time/Diagnoses Date of procedure: 11/26/22 Time of procedure: 14:59 Pre-op diagnosis: Left knee arthritis Post-op diagnosis: same Procedure & Clinicians Procedure: Total knee arthroplasty, left CPT code 15557 Same procedure as scheduled: Yes Indications: The patient has significant pain associated with osteoarthritis of the left knee. It is associated with morning stiffness. Pain interferes with daily normal function including ambulation standing and any activities that are weight-bearing. It interferes with sleep. There is crepitation with range of motion. There is marked joint line tenderness. X-rays show significant levels of osteoarthritis. exhaustive attempted previous conservative treatment has been rendered. The patient has failed exercise program, medications and previous injections. Patient is indicated for total knee arthroplasty. The risks and benefits of the procedure have been discussed with the patient and given the opportunity to ask questions. The risks of surgery include but are not limited to infection, malunion, nonunion, persistence of pain, damage to nerves and blood vessels, posttraumatic arthritis, DVT, PE, cardiopulmonary complications and . The patient expressed a thorough understanding of the risks and benefits of surgery and has elected to proceed. Consent was signed. During the operation, the services of a physician certified surgical assistant were medically indicated and necessary to provide the exposure of the operative site for the surgical procedure and to maintain the limb in a proper position to carry out the operation safely and efficiently. Without a qualified [employer] assistant manager being present this would extended the operative procedure and made the procedure technically more difficult to perform. Surgeon: Radha Cheng Repertoire Manager: Goivana Mcnulty Anesthesia Type: General, Peripheral nerve block and Local Operative Notes Findings: End-stage valgus knee arthritis, eburnated bone, [id number] arthritis this cartilage loss, flexion contracture. Extremely limited preoperative range of motion 5-85 degrees Closure Type: primary Specimen(s): none sent Prosthetic devices, grafts, tissues, transplants, or devices: Olivera and nephew mariah Morocho CS 2 knee Left femur cobalt chromium size 6 Left tibia size 5 Poly size 9 mm Patella 38 x 9 mm round Estimated Blood Loss (mL): 100 Blood products transfused: none Tourniquet time (min): 106 Procedure in detail: Patient was seen in the preoperative area where the patient and site of surgery were identified in the operative knee was marked informed consent confirmed. This was the left knee. Patient received the appropriate preoperative antibiotics this was 2 g of Ancef. And other preoperative medications and was taken to the operating room placed on operating table in the supine position. Spinal anesthetic were administered. The operative extremity was then prepped and draped in the standard sterile fashion with a nonsterile tourniquet high on the thigh. Patient was placed on the green foam bolsters. A lateral post was placed at the level of the proximal thigh /trochanter area as a lateral post. Formal time-out procedure was performed confirming the patient's side and site of surgery and administration of appropriate preoperative antibiotics and implants were in the room accounted for. All were in agreement. Patient received a preoperative dose of tranexamic acid and then a 2nd dose at tourniquet release Patient was prepped and draped in the standard sterile fashion and the foot was placed into the leg drew. This was taken into high flexion and the incision was marked out over the anterior knee to the level of the medial tubercle tubercle. The Esmarch was then used for exsanguination and the tourniquet was inflated to 250 mmHg. Was made through the skin and subcutaneous tissue in flexion this was then brought down into 30? of flexion for the medial parapatellar arthrotomy. A marker pen was used to sherri the arthrotomy site for later repair. Joint fluid was evacuated. The anterior osteophytes and soft tissues were removed. Very minimal medial release was initially made along the medial proximal tibia with Bovie--due to the valgus pattern. The knee including patella was extremely tight. The patella was 1st cut using the saw sized and prepped and then subluxed throughout the case and protected. The leg was then taken into extension and the patella was everted and the patella was cut to accommodate the patellar button. This was sized to a 38 mm button for a 9 mm thickness to recreate the original dimensions of the patella. Poly was removed and the protector replaced and the patella was subluxed and the knee was taken back up into flexion and attention was returned to the femur. Then the rotational landmarks of Whitesides line and the trans epicondylar axis were marked on the femur with electrocautery. Then the intramedullary guide for the femur was created. The distal femoral cut was made in 5? of valgus using the intramedullary guide with the cut setting on 2+ as the patient did have a preoperative flexion contracture. The ACL and PCL released. The proximal tibia was then cut using the intramedullary guide, taking 7 mm off the less involved side this was the medial plateau. The Stephane wing was used to check the slope through the guide. Second pass was made through the tibial cut guide with the saw after the cut tibia was removed plane down about 1 more mm and further smooth then the resection surface. In extension remainders of the medial and lateral menisci were removed. The extension flexion gaps were then checked using both the flexion extension blocks. The knee was extremely tight still and I was unable to get the 9 mm block in flexion or extension at this point additional 2 mm was taken off the tibia which was still tight as there was extremely sclerotic bone posteriorly and there was skiving. Care was taken to focus on removing the posterior eburnated bone once this was done the was still significantly tight in both flexion and extension. Two more mm of resection were then taken which allowed placement of the 9 mm extension block. Knee was still tight in flexion and 2 more mm were also taken off the distal femur taking an approximate total of 4 off the femur and 11-12 off the tibia. And the knee was selected for a 9 mm poly. Next the femur was then sized and the rotation set using the posterior condyle referencing 4? of external rotation with this valgus knee. Knee sized to a 6. Cut block was then placed and the anterior, posterior and chamfer cuts were then made. The posterior osteophytes and soft tissues were then removed. Then in extension the posterior capsule was injected with a mixture of 40 mL of 0.25% Marcaine and 20 mL of Exparel care to avoid excessive injection posterior laterally. The remainder of this was saved for the capsule and subcutaneous tissue and placed during cement curing. Attention was then returned to the tibia and this was prepared with the rotation set by the extramedullary guide. Lined up with the tibial crest and the 2nd toe. The tibial trial was then pinned in place and the trial femoral components were placed. Then the intercondylar notch was cut through the femoral trial to create the box this was done with the distal than the proximal drill and then the box cut distally and then proximally. Next the insert was placed and the trial poly placed. This was stable in flexion and extension and there was a 0-130 degree range of motion. Further flexion was limited by body habitus. The tibia was sized to a 5. The tibia was then finished with the drill and flange cuts and then this was removed. All trials were removed. The wound and bone was irrigated with pulsatile lavage. This was then dried with a sponge. The components were verified and opened and the cement was mixed. Cement was applied to the components and then to the bone then the tibia was cemented in place 1st followed by the femur then the patella. Excess cement was removed. With care looking around the back of the knee. Remainder of the injection was injected around the capsule. 9 mm trial poly was placed back in the leg was placed into extension for the patellar cementing. After this was cured approximately 15 minutes later and the dilute Betadine solution was placed for at least 3 minutes in the wound this was then irrigated out and the final poly was placed. This was a 9 mm poly. The tourniquet was released hemostasis was achieved. Patella was noted to sublux laterally in high flexion. There was a lot of scarring in the lateral tissues secondary to the valgus contracture. With the tourniquet released this did still subluxed in high flexion therefore a lateral release was performed. Once this was completed patella tracked smoothly without pressure. Final 1g of tranexamic acid was given IV at the time of tourniquet release. The capsule was closed with 1. Ethibond suture. Subcutaneous layer was closed with 3-0 Vicryl suture. Skin was closed with a running V lock suture Stratafix Monocryl type suture and Dermabond. An juliana dressing was placed given this patient's requirements of strong anticoagulation. An Stanislaw wrap was applied. Anesthetic was terminated the patient was woken from anesthesia and taken to recovery room in good condition. There no immediate complications from this procedure. The patient will be maintained on a standard total knee replacement protocol with weight-bearing as tolerated. Complications: none Post-operative Condition: stable Disposition: PACU Plan for aftercare: Weightbear as tolerated. Commence immediate range of motion. May resume Eliquis postop day 1. Discharge from hospital when safe for home. Likely postoperative day 1. will commence outpatient physical therapy. will follow up in [facility] in 2 weeks. Patient has a juliana dressing on. The battery for this will run out in 7 days at which time the hose can be cut and the bandage will act as a regular bandage until the follow-up visit at 2 weeks.
--- NOTE | 2022-11-26 15:26 | P.PCN_ITS ---
Peripheral Nerve Block Note Pre-Procedure Reason for block: Attending surgeon request/order for post-op pain management Pre-procedure checklist: Patient examined and chart reviewed, Risks, benefits, alternatives of block discussed, questions answered, Verification of anti- coagulation status, Site confirmed, Timeout performed and Standard ASA monitors applied Consent obtained from: Patient Procedure Date of procedure: 11/26/22 Start Time: 14:30 End Time: 14:40 Performed by: Dione Saldana Sedation - enter dose in comment field: IV Fentanyl (mcg) Location: Pre-Op Position: Supine Laterality: Left (adductor canal) Sterile Technique: Sterile barrier maintained, Sterile gloves, Mask and Chloraprep Skin Wheal: Lidocaine 2% mL: 1 Gauge: 30 Equipment Single injection - Needle brand, gauge, length: pajunk, 21G x 100mm Medications Medications - enter concentration (%) & mL in comment field: Ropivacaine (0.5%, 20mls) Incremental aspiration prior to injection: Yes Ultrasound Reason for Ultrasound: U/S guidance used for needle placement and U/S used to visualize spread of anesthetic Image printed/saved/archived: Yes Limited exam reveals no abnormal findings: Yes Vital signs VS: - 11/26/22 12:54 Temperature 97.1 F L Pulse Rate 71 Respiratory Rate 16 Blood Pressure 140/87 Pulse Oximetry 97 Oxygen Delivery Method Room Air Oxygen Delivery Method Room Air Events Nerve Block Events: Procedure uneventful and Evidence of blood during aspiration (small amount of heme noted during initial aspiration, needle repositioned no further heme noted during aspiration. No hemtoma noted)
[2022-11-26] MEDS: TRANEXAMIC ACID 1,000 MG VIAL 1000 MG INJ ×2 (15:57→17:13)
[2022-11-26] MEDS: CEFAZOLIN 2 GM/100 ML PREMIX 100 ML IV ×2 (15:57→21:22)
[2022-11-26] MEDS: BUPIVACAINE LIPOSOME 266 MG/20 ML VIAL INJ (15:58)
[2022-11-26] MEDS: BUPIVACAINE 0.25% (PF) 60 ML, EPINEPHrine 0.3 MG INJ (15:58)
--- NOTE | 2022-11-26 16:27 | SUR.OPER ---
Supine on padded OR bed, head on pillow, arms secured on padded arm boards at <90 degrees abduction, legs uncrossed, safety belt at thigh, tape over blanket over lower legs.
[2022-11-26] MEDS: DOCUSATE 100 MG CAPSULE PO (20:16)
[2022-11-26] MEDS: ACETAMINOPHEN 325 MG TABLET 650 MG PO (20:16)
[2022-11-26] MEDS: allopurinoL 100 MG TABLET PO (20:16)
[2022-11-26] MEDS: TAMSULOSIN 0.4 MG CAPSULE 0.8 MG PO (20:16)
[2022-11-26] MEDS: LACTATED RINGERS 1,000 ML 100 ML IV (20:17)
[2022-11-26] MEDS: OXYCODONE IR 5 MG TABLET PO (21:25)
--- NOTE | 2022-11-26 23:08 | PC.NURSE ---
Pt up to chair using walker and gait belt. Pt complained of dizziness in chair, VS stable. HR in 50s. Will continue to monitor.
[2022-11-27] MEDS: ACETAMINOPHEN 325 MG TABLET 650 MG PO ×3 (00:33→13:52)
[2022-11-27] MEDS: OXYCODONE IR 10 MG TABLET PO ×3 (00:33→13:52)
[2022-11-27] MEDS: LACTATED RINGERS 1,000 ML 100 ML IV (00:34)
[2022-11-27] MEDS: CEFAZOLIN 2 GM/100 ML PREMIX 100 ML IV (06:19)
[2022-11-27 06:33] LABS: Hematocrit 36.6 % (41-53); Hemoglobin 12.3 g/dL (13.5-17.5)
[2022-11-27 06:51] VITALS: BP 162/65; PULSE 64; RESP 16; TEMP 36.8; O2SAT 96
[2022-11-27] MEDS: METFORMIN XR 500 MG TABLET 1500 MG PO (08:24)
[2022-11-27] MEDS: VIT C/E/ZN/COPPR/LUTEIN/ZEAXAN CAPSULE 1 CAP PO (08:25)
[2022-11-27] MEDS: allopurinoL 100 MG TABLET PO (08:25)
[2022-11-27] MEDS: POTASSIUM CHLORIDE 10 MEQ TAB PO (08:25)
[2022-11-27 08:26] VITALS: BP 162/68
[2022-11-27] MEDS: METOPROLOL ER 25 MG TABLET PO (08:26)
[2022-11-27] MEDS: AMIODARONE 200 MG TABLET 100 MG PO (08:26)
[2022-11-27] MEDS: APIXABAN 5 MG TABLET PO (08:26)
[2022-11-27] MEDS: DOCUSATE 100 MG CAPSULE PO (08:26)
[2022-11-27] MEDS: CHOLECALCIFEROL (VITAMIN D3) 5,000 UNIT TABLET 5000 UNIT PO (08:27)
[2022-11-27 09:05] VITALS: BP 130/66
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
[2022-11-27] MEDS: OXYCODONE IR 5 MG TABLET PO (09:34)
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
[2022-11-27] MEDS: INSULIN LISPRO 100 UNIT/ML 3ML VIAL SUBCUT (11:52)
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
== END 2022-11-27 13:58 | disposition home or self-care (01) ==
LOC: OR 12:28 → AC 12:28
PROVIDERS: Family Provider Student in an Organized Health Care Education/Training Program; PCP Physician Assistant; Referring Provider Orthopaedic Surgery Foot and Ankle Surgery; Visit Provider Orthopaedic Surgery Foot and Ankle Surgery
PROC: 0SRD0JZ Replacement of Left Knee Joint with Synthetic Substitute, Open Approach (ICD-10-PCS; CPT 27447; principal; 2022-11-26 14:15)
DX: M17.12 Unilateral primary osteoarthritis, left knee (principal); E11.9 Type 2 diabetes mellitus without complications; I48.91 Unspecified atrial fibrillation; I10 Essential (primary) hypertension; Z79.84 Long term (current) use of oral hypoglycemic drugs
CPT/HCPCS: 27447; 36415; 64450; 73560; 82962; 85014; 85018; 97161; 97530; C1776; C9290; J0171; J0690; J1100; J2250; J2405; J2704; J3010

== ENCOUNTER → 2023-03-01 11:24 | Outpatient (CLI) | payer MEDICARE, OTHER, SELFPAY ==
[2022-11-26 18:24] VITALS: BMI 35.4
[2023-03-01 13:34] LABS: Alanine Aminotransferase 34 IU/L (<50); Albumin Globulin Ratio 1.2 (1.0-2.8); Alkaline Phosphatase 83 U/L (38-126); Aspartate Aminotransferase 32 IU/L (17-59); Bilirubin Total 0.8 mg/dL (0.2-1.3); Blood Urea Nitrogen 29 mg/dL (9-20); Calcium 9.7 mg/dL (8.4-10.2); Carbon Dioxide 26 mmol/L (22-32); Chloride 100 mmol/L (98-107); Cholesterol 114 mg/dL (140-199); Estimated Glomerular Filt Rate > 60 mL/min (>60); Globulin 3.3 g/dL (1.7-4.1); Glucose 106 mg/dL (80-110); HDL Cholesterol 29 mg/dL (40-60); HEMOLYSIS < 15 (0-50); LDL Cholesterol Calculated 67 mg/dL (<100); Potassium 4.2 mmol/L (3.4-5.1); Sodium 136 mmol/L (137-145); Total Protein 7.3 g/dL (6.3-8.2); Triglycerides 88 mg/dL (35-150)
[2023-03-01 13:53] LABS: Free T4, Direct Thyroxine 1.28 ng/dL (0.78-2.19)
[2023-03-01 14:07] LABS: Thyroid Stimulating Hormone 4.51 uIU/mL (0.47-4.68)
== END ==
LOC: LAB 11:25
PROVIDERS: Family Provider Student in an Organized Health Care Education/Training Program; PCP Physician Assistant; Referring Provider Nurse Practitioner; Visit Provider Nurse Practitioner
DX: I10 Essential (primary) hypertension (principal); E78.00 Pure hypercholesterolemia, unspecified; Z79.899 Other long term (current) drug therapy
CPT/HCPCS: 36415; 80053; 80061; 84439; 84443

== ENCOUNTER → 2024-01-25 10:01 | Outpatient (CLI) | payer MEDICARE, OTHER, SELFPAY ==
[2022-11-26 18:24] VITALS: BMI 35.4
[2024-01-25 10:59] LABS: Creatinine Urine Random 86.17 mg/dL
[2024-01-25 11:03] LABS: Add Manual Diff / Slide Review NO; Basophils Absolute Auto 0 /uL (0-100); Basophils Percent Auto 0.8 % (0-2); Eosinophils Absolute Auto 300 /uL (0-450); Hematocrit 39.7 % (41-53); Hemoglobin 13.1 g/dL (13.5-17.5); Lymphocytes Absolute Auto 1200 /uL (1100-4500); Lymphocytes Percent Auto 20.8 % (25-40); Mean Corpuscular Hemoglobin 29.6 PG (26-34); Mean Corpuscular Volume 89.6 fL (80-100); Monocytes Absolute Auto 400 /uL (0-900); Monocytes Percent Auto 6.6 % (3-14); Neutrophils Absolute Auto 3700 /uL (1500-7000); Neutrophils Percent Auto 66.8 % (50-75); Platelet Count 208 X10^3/uL (150-400); Red Blood Cell Count 4.43 X10^6/uL (4.5-5.9); Red Cell Distribution Width 15.3 % (11.6-14.8); White Blood Cell Count 5.6 X10^3/uL (4.5-11.0)
[2024-01-25 11:04] LABS: Microalbumin Urine Random 1.6 mg/dL (0-1.6)
[2024-01-25 11:21] LABS: Alanine Aminotransferase 49 IU/L (<50); Albumin 4.3 g/dL (3.5-5.0); Albumin Globulin Ratio 1.5 (1.0-2.8); Alkaline Phosphatase 84 U/L (38-126); Aspartate Aminotransferase 42 IU/L (17-59); BUN Creatinine Ratio 25.2 (6-22); Bilirubin Total 0.7 mg/dL (0.2-1.3); Blood Urea Nitrogen 34 mg/dL (9-20); Calcium 9.7 mg/dL (8.4-10.2); Carbon Dioxide 26 mmol/L (22-32); Chloride 103 mmol/L (98-107); Estimated Glomerular Filt Rate 55 mL/min (>60); Globulin 2.9 g/dL (1.7-4.1); Glucose 261 mg/dL (80-110); HEMOLYSIS < 15 (0-50); Potassium 4.5 mmol/L (3.4-5.1); Sodium 138 mmol/L (137-145); Total Protein 7.2 g/dL (6.3-8.2)
== END ==
PROVIDERS: Family Provider Student in an Organized Health Care Education/Training Program; PCP Family Medicine; Referring Provider Family Medicine; Visit Provider Family Medicine
DX: M10.9 Gout, unspecified (principal); E11.9 Type 2 diabetes mellitus without complications
CPT/HCPCS: 36415; 80053; 82043; 82570; 84550; 85025

== ENCOUNTER 2024-02-05 13:40 | Emergency (ER) | payer MEDICARE, OTHER, SELFPAY ==
[2022-11-26 18:24] VITALS: BMI 35.4
[2024-02-05 13:43] VITALS: BP 155/67; PULSE 71; RESP 16; TEMP 36.1; O2SAT 98; BMI 38.8
--- NOTE | 2024-02-05 13:50 | PC.NURSE ---
Undressed wound, weaping present. Sliced taken off tip of finger. Pressure dressing applied. Pt tolerated well
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
[2024-02-05 16:03] VITALS: BP 131/62; PULSE 60; RESP 16; O2SAT 98
== END 2024-02-05 16:03 | disposition home or self-care (01) ==
PROVIDERS: Emergency Provider Physician Assistant Medical; Family Provider Student in an Organized Health Care Education/Training Program; PCP Family Medicine
DX: Z79.01 Long term (current) use of anticoagulants (principal); S61.206A Unspecified open wound of right little finger without damage to nail, initial encounter; W26.8XXA Contact with other sharp object(s), not elsewhere classified, initial encounter; Y93.89 Activity, other specified
CPT/HCPCS: 99281; 99282

== ENCOUNTER → 2024-02-29 09:28 | Outpatient (CLI) | payer MEDICARE, OTHER, SELFPAY ==
[2022-11-26 18:24] VITALS: BMI 35.4
--- NOTE | 2024-02-29 | DI.NM.S_ITS ---
PROCEDURE: NM BONE 3 PHASE RADIOPHARMACEUTICAL: 22 mCi Tc-99m MDP IV. INDICATIONS: Presence of right artificial knee joint TECHNIQUE: Multiple bone scintigrams were obtained after intravenous injection of Tc-99m MDP, including flow, blood pool, and delayed images centered to the region of interest. COMPARISON: [facility] [place], CR, XR KNEE 4+ VIEWS RIGHT, 02/16/2024, 15:55. FINDINGS: Symmetric uptake is seen in the lower extremities on flow images. Blood pool images are also relatively symmetric. On delayed images, the left knee arthroplasty 6 shows slightly increased uptake compared to the right. Bilateral patellar uptake also present. IMPRESSION: Findings do not favor infection or significant inflammation of the right knee. The LEFT knee arthroplasty show mildly increased uptake compared to the right, which may be postsurgical given that it was more recent. Moderate bilateral patellar uptake is seen. Dictated by: Vinod Wise M.D. on 02/29/2024 at 15:59 Approved by: Vinod Wise M.D. on 02/29/2024 at 16:02
== END ==
PROVIDERS: Family Provider Student in an Organized Health Care Education/Training Program; PCP Family Medicine; Referring Provider Physician Assistant Surgical; Visit Provider Physician Assistant Surgical
DX: Z96.651 Presence of right artificial knee joint (principal)
CPT/HCPCS: 78315; A9503

== ENCOUNTER 2024-04-09 09:26 | Emergency (ER) | payer MEDICARE, OTHER, SELFPAY ==
[2022-11-26 18:24] VITALS: BMI 35.4
[2024-04-09 09:36] VITALS: BP 125/61; PULSE 64; RESP 16; TEMP 36.4; O2SAT 98
--- NOTE | 2024-04-09 09:43 | DI.US.S_ITS ---
PROCEDURE: US SCROTUM INDICATIONS: Pain and swelling TECHNIQUE: Real-time scanning was performed of the scrotum and testicles, with image documentation. Color and pulse Doppler interrogation was performed of both testicles. COMPARISON: [facility], , US SCROTUM, 08/16/2022, 10:33. FINDINGS: Right: Testicle is normal in size at 4.7 x 2.5 x 2.6 cm, and homogenous in echotexture. Epididymis is normal in overall size and morphology. No hydrocele. Mild varicocele. Overlying scrotal skin is increased in thickness. Left: Testicle is normal in size at 3.8 x 2.9 x 2.7 cm, and homogeneous in echotexture. Heterogeneous structure within the left epididymal tail region measuring 1.7 x 2.9 x 1.9 cm. Small hydrocele. No varicoceles. Overlying scrotal skin is increased in thickness. Doppler: Increased vascularity to the left teste and epididymis. IMPRESSION: Increased vascularity to the left teste and epididymis with a heterogeneous structure in the left epididymal tail measuring 2.9 cm. This may represent a hematoma. Increased vascularity may be reactive if there is a history of recent trauma. Other differential includes epididymal orchitis. Recommend clinical correlation. Mild right varicocele. Dictated by: Cezar Ramachandran M.D. on 04/09/2024 at 11:06 Approved by: Cezar Ramachandran M.D. on 04/09/2024 at 11:09
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
[2024-04-09 10:16] LABS: Appearance Urine UA CLEAR; Bilirubin Urine UA NEGATIVE (NEGATIVE); Color Urine UA YELLOW; Glucose Urine UA NEGATIVE (Negative); Ketones Urine UA NEGATIVE (NEGATIVE); Leukocyte Esterase Urine UA 1+ (NEGATIVE); Nitrite Urine UA POSITIVE (Negative); Occult Blood Urine UA 1+ (Negative); Protein Urine UA NEGATIVE (Negative); Urobilinogen Urine UA 0.2 E.U./dL (0.2)
[2024-04-09 10:19] LABS: Urine Volume 10mL (spun)
[2024-04-09 10:20] LABS: Add Manual Diff / Slide Review NO; Basophils Absolute Auto 100 /uL (0-100); Eosinophils Absolute Auto 400 /uL (0-450); Eosinophils Percent Auto 5.3 % (2-4); Hematocrit 37.8 % (41-53); Hemoglobin 12.7 g/dL (13.5-17.5); Lymphocytes Absolute Auto 1200 /uL (1100-4500); Lymphocytes Percent Auto 17.8 % (25-40); Mean Corpuscular HGB Conc 33.5 % (30-36); Mean Corpuscular Hemoglobin 30.1 PG (26-34); Mean Corpuscular Volume 89.8 fL (80-100); Monocytes Absolute Auto 500 /uL (0-900); Monocytes Percent Auto 6.9 % (3-14); Neutrophils Absolute Auto 4600 /uL (1500-7000); Platelet Count 216 X10^3/uL (150-400); RBC Urine 1-5/HPF (0-5/HPF); Red Blood Cell Count 4.21 X10^6/uL (4.5-5.9); Red Cell Distribution Width 15.6 % (11.6-14.8); White Blood Cell Count 6.8 X10^3/uL (4.5-11.0)
[2024-04-09 10:21] LABS: Bacteria Urine Many (>30); Culture Indicated Urine Specimen Cultured; Squamous Epithelial Cell Urine None Seen (0-5/HPF); WBC Urine 5-10/HPF (0-5/HPF)
[2024-04-09 10:26] LABS: INR 1.2 (0.9-1.3); Prothrombin Time 13.8 SECONDS (9.4-12.5)
[2024-04-09 10:29] LABS: PTT Partial Thromboplastin Tim 36 SECONDS (25.1-36.5)
[2024-04-09 10:30] LABS: Alanine Aminotransferase 34 IU/L (<50); Albumin 4.2 g/dL (3.5-5.0); Albumin Globulin Ratio 1.2 (1.0-2.8); Alkaline Phosphatase 76 U/L (38-126); Aspartate Aminotransferase 31 IU/L (17-59); Bilirubin Total 0.8 mg/dL (0.2-1.3); Blood Urea Nitrogen 40 mg/dL (9-20); Calcium 9.3 mg/dL (8.4-10.2); Carbon Dioxide 23 mmol/L (22-32); Chloride 101 mmol/L (98-107); Estimated Glomerular Filt Rate 42 mL/min (>60); Globulin 3.4 g/dL (1.7-4.1); Glucose 174 mg/dL (80-110); HEMOLYSIS < 15 (0-50); Potassium 4.7 mmol/L (3.4-5.1); Sodium 136 mmol/L (137-145); Total Protein 7.6 g/dL (6.3-8.2)
[2024-04-09 11:10] VITALS: BP 126/78; PULSE 66; RESP 16; O2SAT 98
[2024-04-09 11:19] VITALS: PULSE 61; O2SAT 97
[2024-04-09 11:30] VITALS: PULSE 60; O2SAT 97
[2024-04-09 11:31] VITALS: BP 124/59; PULSE 61; RESP 16; O2SAT 95
[2024-04-09] MEDS: levoFLOXacin 250 MG TABLET 500 MG PO (11:34)
[2024-04-09 11:36] VITALS: BP 126/58; PULSE 61; O2SAT 97
== END 2024-04-09 11:54 | disposition home or self-care (01) ==
PROVIDERS: Emergency Provider Emergency Medicine; Family Provider Student in an Organized Health Care Education/Training Program; PCP Family Medicine
DX: N39.0 Urinary tract infection, site not specified (principal); N45.1 Epididymitis
CPT/HCPCS: 76870; 80053; 81001; 85025; 85610; 85730; 87077; 87086; 87147; 87186; 93975; 99283; 99284

== ENCOUNTER → 2024-09-06 11:11 | Outpatient (CLI) | payer MEDICARE, OTHER, SELFPAY ==
[2022-11-26 18:24] VITALS: BMI 35.4
== END ==
PROVIDERS: Family Provider Family Medicine; PCP Family Medicine; Referring Provider Family Medicine; Visit Provider Family Medicine
DX: R19.7 Diarrhea, unspecified (principal)
CPT/HCPCS: 87177; 87329

== ENCOUNTER 2024-09-10 08:47 | Observation (INO) | payer MEDICARE, OTHER, SELFPAY ==
[2022-11-26 18:24] VITALS: BMI 35.4
[2024-09-10] VITALS (28 sets, daily range): BP systolic 90–136; BP diastolic 46–64; PULSE 55–69; RESP 13–23; TEMP 36.1–36.8; O2SAT 98–100; BMI 34.1
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
--- NOTE | 2024-09-10 09:16 | DI.CT.S_ITS ---
PROCEDURE: CT ABDOMEN PELVIS WO CON INDICATIONS: abd pain/diarrhea/ allergy to contrast dye TECHNIQUE: CT of the abdomen and pelvis was obtained without intravenous contrast. Coronal and sagittal reformats were performed. For radiation dose reduction, the following was used: automated exposure control, adjustment of mA and/or kV according to patient size. COMPARISON: None. FINDINGS: Image quality: Diagnostic. Lower Chest: No significant findings. ABDOMEN: Liver: No contour-deforming mass. Gallbladder: No radiopaque gallstones or wall thickening. Biliary ducts: No biliary dilation. Pancreas: No ductal dilation. Spleen: Size is within normal limits. Adrenal Glands: No adrenal nodules. Kidneys and Ureters: No hydronephrosis. No contour-deforming mass. Large burden of nonobstructing left-sided nephrolithiasis, largest stone measuring 1 centimeter. Stomach and Bowel: Normal colonic caliber, without significant wall thickening. Normal appendix. No significant diverticular disease. Peritoneum: No abnormal intraperitoneal fluid. No free air. Ventral Wall: Small umbilical hernia containing fat. Abdominal Nodes: No retroperitoneal or mesenteric adenopathy by size criteria. Vessels: Aorta and inferior vena cava are normal in size. PELVIS: Pelvic Organs: Unremarkable. Bladder: Unremarkable. Pelvic Nodes: No enlarged lymph nodes. Miscellaneous: Moderate right indirect inguinal hernia and small left direct inguinal hernia. These contain fat. Bones: No aggressive osseous abnormality. IMPRESSION: No acute abnormality. Large burden of nonobstructing left-sided nephrolithiasis. Dictated by: Reji Oviedo M.D. on 09/10/2024 at 10:01 Approved by: Reji Oviedo M.D. on 09/10/2024 at 10:03
--- NOTE | 2024-09-10 09:22 | EKG_ITS ---
[place] [id number] [place] [id number] Test Date: 2024-09-10 Pat Name: Arian Leong Department: Room: Gender: Male Patient Observer: YASIR : 1950 Requested By: Order Number: [id number] Reading MD: John Orellana Measurements Intervals [place] Rate: 59 P: 52 [place]: 282 QRS: -3 QRSD: 114 T: 7 QT: 440 QTc: 435 Interpretive Statements Sinus bradycardia with 1st degree AV block Incomplete right bundle branch block Electronically Signed On 09-15-2024 7:31:29 PDT by John Orellana
[2024-09-10 09:38] LABS: Add Manual Diff / Slide Review NO; Hematocrit 41.4 % (41-53); Hemoglobin 13.8 g/dL (13.5-17.5); Lymphocytes Absolute Auto 900 /uL (1100-4500); Mean Corpuscular HGB Conc 33.2 % (30-36); Mean Corpuscular Hemoglobin 30.5 PG (26-34); Mean Corpuscular Volume 91.8 fL (80-100); Platelet Count 195 X10^3/uL (150-400)
[2024-09-10 09:50] LABS: Alanine Aminotransferase 36 IU/L (<50); Albumin 4.5 g/dL (3.5-5.0); Albumin Globulin Ratio 1.3 (1.0-2.8); Alkaline Phosphatase 79 U/L (38-126); Blood Urea Nitrogen 74 mg/dL (9-20); Calcium 9.9 mg/dL (8.4-10.2); Carbon Dioxide 16 mmol/L (22-32); Chloride 108 mmol/L (98-107); Estimated Glomerular Filt Rate 21 mL/min (>60); Globulin 3.6 g/dL (1.7-4.1); Glucose 115 mg/dL (70-99); HEMOLYSIS < 15 (0-50); Lipase 74 U/L (23-300); Magnesium 2.8 mg/dL (1.6-2.3); Potassium 5.2 mmol/L (3.4-5.1); Sodium 137 mmol/L (137-145); Total Protein 8.1 g/dL (6.3-8.2)
[2024-09-10] MEDS: LACTATED RINGERS 1,000 ML 1000 ML IV ×2 (10:10→10:48)
[2024-09-10 11:22] LABS: Culture Indicated Urine Cult Not Indicated
[2024-09-10] MEDS: SODIUM CHLORIDE 0.9% 1,000 ML 100 ML IV (13:47)
[2024-09-10 14:25] LABS: Clostridium difficile toxin AB Not Detected (Not Detect); Enteroaggregative E.coli Not Detected (Not Detect); Enteropathogenic E.coli Not Detected (Not Detect); Enterotoxigenic E.coli It/st Not Detected (Not Detect); Plesiomonsa shigelloides Not Detected (Not Detect); Shiga-like toxin-prod E.coli Not Detected (Not Detect)
[2024-09-10] MEDS: AZITHROMYCIN 250 MG TABLET 500 MG PO (18:51)
[2024-09-10] MEDS: TAMSULOSIN 0.4 MG CAPSULE 0.8 MG PO (22:01)
[2024-09-10] MEDS: APIXABAN 5 MG TABLET PO (22:01)
[2024-09-10] MEDS: ATORVASTATIN 20 MG TABLET 40 MG PO (22:02)
[2024-09-10] MEDS: POTASSIUM CHLORIDE 20 MEQ TAB PO (22:02)
[2024-09-11] MEDS: SODIUM CHLORIDE 0.9% 1,000 ML 100 ML IV ×3 (00:37→22:52)
[2024-09-11 06:31] LABS: Blood Urea Nitrogen 50 mg/dL (9-20); Calcium 9.2 mg/dL (8.4-10.2); Carbon Dioxide 19 mmol/L (22-32); Chloride 110 mmol/L (98-107); Estimated Glomerular Filt Rate 45 mL/min (>60); Glucose 72 mg/dL (70-99); HEMOLYSIS 21 (0-50); Potassium 4.9 mmol/L (3.4-5.1); Sodium 136 mmol/L (137-145)
[2024-09-11] MEDS: LEVOTHYROXINE 25 MCG TABLET PO (06:48)
[2024-09-11 08:00] VITALS: BP 143/73; PULSE 68; RESP 12; TEMP 36.2; O2SAT 100
[2024-09-11] MEDS: VIT C/E/ZN/COPPR/LUTEIN/ZEAXAN CAPSULE 1 CAP PO (09:08)
[2024-09-11] MEDS: AMIODARONE 200 MG TABLET 100 MG PO (09:08)
[2024-09-11] MEDS: METOPROLOL ER 25 MG TABLET PO (09:08)
[2024-09-11] MEDS: AZITHROMYCIN 250 MG TABLET 500 MG PO (09:08)
[2024-09-11] MEDS: APIXABAN 5 MG TABLET PO ×2 (09:08→20:33)
[2024-09-11] MEDS: POTASSIUM CHLORIDE 20 MEQ TAB PO ×3 (09:09→20:28)
--- NOTE | 2024-09-11 11:25 | DIET.CONS ---
Dietary Consultation Note Admission Date: 09/10/2024 11:23 Assessment: 74 y M admitted for diarrhea with MARK. Dietitian consulted for MNA score. Met with pt and family at bedside. Reports starting Mounjaro in July and having 1 lb weight loss per week. Still doing 3 meals per day, but only 50-75% of usual intake. This past week reports doing BRAT diet up until the weekend when didn't consume any PO intakes d/t diarrhea, was doing orange juice and bone broth to help with hydration. Have questions about lytes in beverages and protein intake with CKD. A1c 7.7% on 04/25/24. Ht: 177.8 cm Wt: 107.955 kg BMI: 34.1 UBW: 118.388 kg on 04/09/24 (-8.8% loss in 6 month, non-severe), 112.491 kg on 07/26/24 (-4% weight loss in 2 months, non-severe) Last BM: 09/11/24 (09/11/24 06:00) MNA: 10 Rakesh Score: 21 Diet: 09/10/24 Dinner Clear Liquid Diet Diet Modifications: Advance as tolerated Nutrition Percent Meal Consumed 75% 09/10/24 18:00 Labs: RBC 4.52 X10^6/uL (4.5-5.9) 09/10/24 09:29 Hgb 13.8 g/dL (13.5-17.5) 09/10/24 09:29 Hct 41.4 % (41-53) 09/10/24 09:29 Creatinine 1.58 mg/dL (0.66-1.25) H 09/11/24 05:40 Nutrition Diagnosis: Inadequate oral intake r/t diarrhea aeb pt reports not eating food over weekend Decreased nutrient needs (protein) r/t renal dysfunction aeb pt and family report hx CKD3b Interventions: -Discussed oral re-hydration beverages and when appropriate times to use -Discussed appropriate protein portions at meals and plant based protein choices and avoiding added sodium electrolyte beverages on day to day basis when not having excess loss EER: 60-65 g protein (.8 g/kg adjusted IBW per CKD w/ DM) Monitoring/Evaluations: PO intakes Electronically Signed by: Ria Rosales 09/11/24 11:25 Clinical Dietitian [address] [place] [address]
[2024-09-11 12:00] VITALS: BP 117/56; PULSE 64; RESP 12; TEMP 36.6; O2SAT 99
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
[2024-09-11 16:00] VITALS: BP 129/70; PULSE 67; RESP 12; TEMP 36.1; O2SAT 100
[2024-09-11 19:00] VITALS: BP 151/76; PULSE 65; RESP 16; TEMP 36.3; O2SAT 100
[2024-09-11] MEDS: TAMSULOSIN 0.4 MG CAPSULE 0.8 MG PO (20:25)
[2024-09-11] MEDS: ATORVASTATIN 20 MG TABLET 40 MG PO (20:27)
[2024-09-12] VITALS: BP 148/76; PULSE 67; RESP 16; TEMP 36.3; O2SAT 98
[2024-09-12 05:42] VITALS: BP 143/92; PULSE 67; RESP 16; TEMP 36.5; O2SAT 99
[2024-09-12 06:27] LABS: Blood Urea Nitrogen 31 mg/dL (9-20); Calcium 9.1 mg/dL (8.4-10.2); Carbon Dioxide 19 mmol/L (22-32); Chloride 111 mmol/L (98-107); Estimated Glomerular Filt Rate > 60 mL/min (>60); Glucose 99 mg/dL (70-99); HEMOLYSIS < 15 (0-50); Potassium 4.9 mmol/L (3.4-5.1); Sodium 138 mmol/L (137-145)
[2024-09-12] MEDS: LEVOTHYROXINE 25 MCG TABLET PO (06:31)
[2024-09-12 08:00] VITALS: BP 151/73; PULSE 68; RESP 16; TEMP 36.5; O2SAT 99
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
[2024-09-12] MEDS: METOPROLOL ER 25 MG TABLET PO (09:15)
[2024-09-12] MEDS: AMIODARONE 200 MG TABLET 100 MG PO (09:15)
[2024-09-12] MEDS: APIXABAN 5 MG TABLET PO (09:15)
[2024-09-12] MEDS: AZITHROMYCIN 250 MG TABLET 500 MG PO (09:15)
[2024-09-12] MEDS: VIT C/E/ZN/COPPR/LUTEIN/ZEAXAN CAPSULE 1 CAP PO (09:16)
[2024-09-12] MEDS: POTASSIUM CHLORIDE 20 MEQ TAB PO (09:18)
--- NOTE | 2024-09-12 12:21 | CM.DANOTE ---
Initial DCP Assessment Visit Note Reviewed EMR and team rounds for pt's medical status and updates. Met with pt at bedside to introduce self and role, pt was found to be alert/oriented, and shared that he's feeling much better today. He resides independently in his own home w/spouse in [place]. He has been medically cleared for home d/c today, and his spouse will be transporting him back home. Payor: Medicare PCP: Dr. Harris Pt is a 74 year-old M with a hx of type II diabetes and Afib who presented to the ED yesterday afternoon with c/o having 1-week of watery stool and stomach cramps, despite having taken anti-diarrhea medication. He had recently returned from a fishing trip in [place] when symptoms began shortly after he arrived home. Plan was made to admit him with IV ABO's and Flagyl due to a potential bacterial component. He denied any CM d/c assistance needs at this time. Notified TCM group of need for post-hospitalization f/u with Dr. Harris. Discharge Planning/Care Management Advanced directive, confirm from FAMILY Start: 09/10/24 16:01 Freq: Q24H Status: Active Protocol: Document 09/10/24 19:00 MW (Rec: 09/11/24 00:31 MW [id number]) Advance Directive, confirm on record Time 20:10 Person contacted pt Copy received No Document 09/11/24 20:30 VH (Rec: 09/11/24 23:12 VH [id number]) Advance Directive, confirm on record Time 20:10 Person contacted pt Copy received No CM Discharge Assessment Start: 09/10/24 13:28 Freq: Status: Active Protocol: Document 09/12/24 12:20 DPL (Rec: 09/12/24 12:21 DPL [id number]) Discharge Planning Assessment Assigned Discharge JESSICA Gilbert Stone Lathe Operator Advance Directives? Yes Advance Directives No on File History Provided By Patient,Medical Record Has Patient been No admitted in last 30 days? Prior Living House Arrangements Household Members spouse Type of Drives own vehicle transporation used prior to admit Independent with ADL Yes 's Is patient alert and Yes oriented? Caregiver for No Another Comment No identified home d/c needs at this time. Barriers to No Discharge Discharge Plan Home Referrals Initiated None needed Whiteboard Updated Yes in Patient Room with name and ext. # of Systems Lead Review Status In Process Please Provide Date 09/12/24 Initial DC Assessment Was Performed
== END 2024-09-12 13:30 | disposition home or self-care (01) ==
LOC: ED 11:23 → AC 11:24
PROVIDERS: Admitting Provider Internal Medicine; Emergency Provider Family Medicine; Family Provider Family Medicine; PCP Family Medicine; Referring Provider Family Medicine; Visit Provider Internal Medicine
DX: R19.7 Diarrhea, unspecified (principal); E86.0 Dehydration; N17.9 Acute kidney failure, unspecified; E11.9 Type 2 diabetes mellitus without complications; N18.9 Chronic kidney disease, unspecified; E78.5 Hyperlipidemia, unspecified; I48.20 Chronic atrial fibrillation, unspecified; Z79.01 Long term (current) use of anticoagulants; Z79.84 Long term (current) use of oral hypoglycemic drugs; Z87.891 Personal history of nicotine dependence
CPT/HCPCS: 36415; 74176; 80048; 80053; 81003; 81015; 82962; 83690; 83735; 85025; 87507; 93005; 96360; 96361; 99284; G0378

== ENCOUNTER 2024-10-15 08:19 | Day surgery (SDC) | payer MEDICARE, OTHER, SELFPAY ==
[2024-09-10 13:28] VITALS: BMI 34.1
[2024-10-15] MEDS: LACTATED RINGERS 1,000 ML 42 ML IV (08:15)
[2024-10-15 08:57] VITALS: BP 155/74; PULSE 63; RESP 18; TEMP 36.4; O2SAT 100
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
--- NOTE | 2024-10-15 09:34 | PM.OP.COLON ---
Operative Date/Time/Diagnoses Date of procedure: 10/15/24 Time of procedure: 10:02 Pre-op diagnosis: See indication and findings Post-op diagnosis: same Procedure & Clinicians Study performed: Colonoscopy Same procedure(s) as scheduled: Yes Indications: Diarrhea Surgeon: Ana Mendoza Anesthesia Type: Other Procedure Notes Procedure in detail: After informed consent was obtained the patient was placed in left lateral decubitus position. The video colonoscope was introduced the rectum slowly advanced cecum. Preparation was good. On slow withdrawal mucosa was carefully examined. The scope was removed. The patient tolerated procedure well. Blood loss none complications none Sedation mac Findings 1. Normal colonoscopy to cecum. Random biopsies taken to rule out colitis. We will be in touch regarding biopsies.
--- NOTE | 2024-10-15 09:49 | PATH_ITS ---
[facility] Accession Number: [id number] No. of containers..01 Tissue . 01 Material submitted: . colon - COLON, RANDOM . 01 Diagnosis: RANDOM COLON, BIOPSY: Colonic mucosa with no diagnostic abnormality. Negative for active, chronic, and microscopic colitis. Negative for dysplasia and malignancy. . MRV 10/25/2024 1525 Local . 01 Electronically signed: . Manuelito Atkinson MD, PhD, Pathologist NPI- [id number] . 01 Gross description: . Received in formalin with two identifiers and random colon, are five soft castellanos tissue fragments ranging from 0.1 to 0.5 cm in greatest dimension. Entirely submitted in cassette A1. (AER:[id number]) /MELIZA 10/23/2024 0118 Local . 01 Pathologist provided ICD-10: R19.4 . 01 CPT . 873388 Specimen Comment: A courtesy copy of this report has been sent to [phone] Performed at: [address] [facility] [address], [place], [place] [id number] MD Jameson Martin MD Phone: [phone]
[2024-10-15 09:52] VITALS: BP 146/60; PULSE 59; RESP 19; TEMP 36.1; O2SAT 95
[2024-10-15 09:58] VITALS: BP 127/56; PULSE 56; RESP 30; O2SAT 95
[2024-10-15 10:03] VITALS: BP 115/65; PULSE 62; RESP 13; O2SAT 98
[2024-10-15 10:06] VITALS: BP 149/69; PULSE 59; RESP 23; TEMP 36.2; O2SAT 98
== END 2024-10-15 10:20 | disposition home or self-care (01) ==
PROVIDERS: Family Provider Family Medicine; PCP Family Medicine; Referring Provider Family Medicine; Visit Provider Internal Medicine Gastroenterology
PROC: 0DJD8ZZ Inspection of Lower Intestinal Tract, Via Natural or Artificial Opening Endoscopic (ICD-10-PCS; CPT 45378; principal; 2024-10-15 09:30)
DX: R19.7 Diarrhea, unspecified (principal)
CPT/HCPCS: 45380; 82962; J2704

== ENCOUNTER 2024-11-16 13:00 | Outpatient (RCR) | payer MEDICARE, OTHER, SELFPAY ==
[2022-11-26 18:24] VITALS: BMI 35.4
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
--- NOTE | 2024-09-25 09:45 | PT.OTN ---
Current Diagnoses Other chronic pain (09/25/24) Unilateral primary osteoarthritis, right hip (09/25/24) Pain in right hip (09/25/24) Physical Therapy Treatment Note PT OP: Lower Back/Lower Extremity Start: 09/07/24 09:51 Freq: Status: Active Protocol: Document 09/25/24 09:07 SP (Rec: 09/25/24 09:49 SP [id number]) Out-Patient Physical Therapy Visit Information Visit Information Visit Type Treatment Note Visit Start Time 09:07 Visit Stop Time 09:45 Visit Number 2 Number of PERSONAL LINES INSURANCE ADVISOR Visits 1 Progress Note Due 10/12/24 OP-PT Subjective Patient Comments Patient Comments Pt reports felt the exercises got at [facility] was helpful. He [facility] [employer] [facility] and did the bike yesterday then did leg press, leg curls, shoulder press , 5 min in elliptical. He states would like gym related exercises can do there but is doing his HEP 1 x yesterday. He states the gym mats aren't as comfortable as bigger one has at home (to combersome to take to gym). Cardio Equipment Recumbent Stepper (Sci-Fit) Duration (Minutes) 8 Resistance 3 Seat Position 14 Other BUEs, BLEs: 66 RPMs, Bicycle (Upright) Duration (Minutes) 2 Resistance 9 Seat Position 8 Other 59 RPMs Gym Equipment Shuttle Recovery Unilateral Squat Details R unblock, allow flexion range can do, cued not forceful ext >fluid mov't Resistance 50# R (2 navy), 75# L (2 navy/1 teal) Reps/Time 20 reps each Bilateral Squat Details cued slower eccentric pacing flexion not hard block, not lock knees ext. Resistance 75#>150# (4 navy 2 teal) Reps/Time 20 reps- good muscle tiring for his ability Shuttle Balance Red Details WBOS, Stride Stance Comments wt shift stationary & HTs CG/Min A- impressive midline corrections Neuro Re-Education Treatment Balance Activities SLS Details next Physical Therapy Assessment Goals Three Impairment lack of HEP Short Term Goal (STG patient demonstrates indep with HEP ) STG Duration 6 weeks Two Impairment pain with walking Short Term Goal (STG patient is able to walk 30 min, with SPC, with 50% ) reduced pain One Impairment pain sit to stand Short Term Goal (STG patient has pain free sit to stand ) STG Duration 6 weeks Assessment Summary Assessment Pt had good response to strengthening today, cues for knee alignment during leg press for safety slower pacing into jt end feel range and postural correction during balance today. Would benefit from continued strength and balance progression next tx. Physical Therapy Plan Frequency and Duration Frequency of 2x/Week Treatment Duration of 6 treatment (weeks) Plan of Care Start 09/07/24 Date Plan of Care End 12/12/24 Date Therapeutic Interventions Therapeutic Balance Training,Coordination Training,Gait Training, Interventions Home Exercise Program,Joint Mobilizations,Manual Therapy,Neuromuscular Re-education,Orthotic/Prosthetic Management,Patient/Caregiver Education,Self-Care/Home Management,Therapeutic Activities,Therapeutic Exercises Modalities Biofeedback,Electric Stimulation,Hot Packs,Ultrasound Next Visit Focus/Plan Next Note Type Treatment Note Next Visit Plan Nu step shuttle shuttle balance HEP review and progression
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
--- NOTE | 2024-10-03 12:18 | PT.OTN ---
Current Diagnoses Other chronic pain (10/03/24) Unilateral primary osteoarthritis, right hip (10/03/24) Pain in right hip (10/03/24) Physical Therapy Treatment Note PT OP: Lower Back/Lower Extremity Start: 09/07/24 09:51 Freq: Status: Active Protocol: Document 10/03/24 11:38 SP (Rec: 10/03/24 12:24 SP [id number]) Out-Patient Physical Therapy Visit Information Visit Information Visit Type Treatment Note Visit Note Did not check vitals today 10/03/24 Visit Start Time 11:38 Visit Stop Time 12:18 Visit Number 4 Number of WATER MAIN PIPE LAYER Visits 2 Progress Note Due 10/12/24 OP-PT Subjective Patient Comments Patient Comments Pt reports PT exercises helping and seeing good changes in self with pain reduction, was ableto walk around [facility] for 's appt and no pain and able to standin in kitchen for 2 hrs with no problems lately. He wants to be able to do stretching at gym in sitting, hardtime getting on floor to do stretching and has to do on bed not as good as firm surface on PT table though. Can we try sitting version? Is going to gym and wants to be able to do HEP there at 1 time vs home too. The piriformis stretch is his most effective 1 states helps most bang for the humphries for hip ROM. Cardio Equipment Recumbent Stepper (Sci-Fit) Duration (Minutes) 8 Resistance 3 Seat Position 14 Other BUEs, BLEs: 66 RPMs, Gym Equipment Shuttle Recovery Unilateral Squat Details R unblock, allow flexion range can do, cued not forceful ext >fluid mov't Resistance 50# R (2 navy), 75# L (2 navy/1 teal) Reps/Time 20 reps each Bilateral Squat Details cued slower eccentric pacing flexion not hard block, not lock knees ext. Resistance 75#>150# (4 navy 2 teal) Reps/Time 20 reps- good muscle tiring for his ability Therapeutic Exercises Supine Exercises bridge Supine Exercise Name supine bridging Side bilateral Equipment Used Isometric pull down (arms at chest range, WATER MAIN PIPE LAYER hold back OH) Reps/Minutes 10 resps bridge with TA Comments cued slow pace and feet little closer to buttocks for dec HS cramp stretching Supine Exercise Name Single: 1. piriformis stretch 2. hamstring stretch Side bilateral Resistance AAROM: Equipment Used 1. towel roll anterior hip then with opp UE/opp LE str2 . grasp behind thigh Reps/Minutes 60 sec x2 each LE, each stretch Comments Supine then instructed seated for carryover ease gym too with HO. Neuro Re-Education Treatment Balance Activities corner balance Details added to HEP with HO: tandem with HTs Comments wall corner at back, chair front for stabiltiy- improved balance with time spent Hurdles Details future SLS Details next Physical Therapy Assessment Goals Three Impairment lack of HEP Short Term Goal (STG patient demonstrates indep with HEP ) STG Duration 6 weeks Two Impairment pain with walking Short Term Goal (STG patient is able to walk 30 min, with SPC, with 50% ) reduced pain One Impairment pain sit to stand Short Term Goal (STG patient has pain free sit to stand ) STG Duration 6 weeks Assessment Summary Assessment Pt improved R hip flexibility with instrction update seated vs hooklying HS and pirif stretching so can perform at gym too, hard to get on floor there. Instructed corner balance to progress balance outside PT for self carryover with improved stability corner at back and in chair front for recovery as needed, able to perform head turns as can stab range. Physical Therapy Plan Frequency and Duration Frequency of 2x/Week Treatment Duration of 6 treatment (weeks) Plan of Care Start 09/07/24 Date Plan of Care End 12/12/24 Date Therapeutic Interventions Therapeutic Balance Training,Coordination Training,Gait Training, Interventions Home Exercise Program,Joint Mobilizations,Manual Therapy,Neuromuscular Re-education,Orthotic/Prosthetic Management,Patient/Caregiver Education,Self-Care/Home Management,Therapeutic Activities,Therapeutic Exercises Modalities Biofeedback,Electric Stimulation,Hot Packs,Ultrasound Next Visit Focus/Plan Next Note Type Treatment Note Next Visit Plan Recheck corner balance for self home/gym POC: Nu step shuttle shuttle balance HEP review and progression
--- NOTE | 2024-10-05 12:15 | PT.OTN ---
Current Diagnoses Other chronic pain (10/05/24) Unilateral primary osteoarthritis, right hip (10/05/24) Pain in right hip (10/05/24) Physical Therapy Treatment Note PT OP: Lower Back/Lower Extremity Start: 09/07/24 09:51 Freq: Status: Active Protocol: Document 10/05/24 11:35 SP (Rec: 10/05/24 12:20 SP [id number]) Out-Patient Physical Therapy Visit Information Visit Information Visit Type Treatment Note Visit Start Time 11:35 Visit Stop Time 12:15 Visit Number 5 Number of SENIOR CONTRACTS MANAGER Visits 3 Progress Note Due 10/12/24 Precautions Precautions R Eye prosthetic. Vital Signs Comments Vital Signs Comments Vitals after bike: (L UE autmated) BP 149/71 , HR 68, SaO2 100 OP-PT Subjective Patient Comments Patient Comments Pt report felt good after last tx. slowly getting stamina back and little longer 2 hrs (improved previous <1 hr when started PT) standing before back starts to hurt and not leaning as much. Cardio Equipment Recumbent Stepper (Sci-Fit) Duration (Minutes) 8 Resistance 3.5 Seat Position 14 Other BUEs&BLEs then occasional BLEs only 2 min: 60 RPMs Gym Equipment Cable Column (Body Solid) adduction Details hip range #3 Resistance 4 plates Reps/Time 20 reps abduction Details hip range #5, cued slow muscle engage, PPT with TA, not momentum press LS Resistance 4 plates Reps/Time 20 reps Shuttle Recovery Unilateral Squat Details R unblock, allow flexion range can do, cued not forceful ext >fluid mov't Resistance 50# R (2 navy), 75# L (2 navy/1 teal) Reps/Time 20 reps each Bilateral Squat Details cued slower eccentric pacing flexion not hard block, not lock knees ext. Resistance 75#>150# (4 navy 2 teal) Reps/Time 20 reps- good muscle tiring for his ability Therapeutic Exercises Standing Exercises Resisted Stepping Standing Exercise Readded to HEP (past pre hip surgery HEP): lateral, fwd Name , bwd- decline HO Side bilateral Resistance Tb #3 around shins Equipment Used gait belt CGA> close SBA Reps/Minutes 10 ft x3 laps each direction Comments cued tall, slower pacing, eccentric stepping sit to stand Standing Exercise reviewed Name Side bilateral Resistance TB #3 around thighs Reps/Minutes 10 reps Comments stand with exhale Neuro Re-Education Treatment Balance Activities Hurdles Details forward & lateral Surface CGA> close SBA, Min cues for safety pacing and foot clearance Equipment 6 hurdles, BUE rail support lateral, 1 HR fwd Reps/Duration 3 laps each direction Comments cued R LE hip& knee flexion ROM clearance, R heel LE leading caught slick couple times but self rail support recovery. Cues to look at hurdles when stepping and slow pacing stance time for safety clearance and stability. Pt and SENIOR CONTRACTS MANAGER measured distance between hurdles (have same ones at gym), discussed importance be near a rail for safety support and all cues gave today for success and no risk for tripping and fall, especially with only use of L eye for visual use, pt verbalized understanding. SLS Details next Self-Care/Home Management Treatment Education Patient Education Body Mechanics,Fall Risk,Home Exercise Program,Joint Protection,Pain Management,Posture,Safety Other Education Pt and SENIOR CONTRACTS MANAGER measured distance between hurdles (have same ones at gym), discussed importance be near a rail for safety support and all cues gave today for success and no risk for tripping and fall, especially with only use of L eye for visual use, pt verbalized understanding. Ed cues for posture, safety foot clearance. Physical Therapy Assessment Goals Three Impairment lack of HEP Short Term Goal (STG patient demonstrates indep with HEP ) STG Duration 6 weeks Two Impairment pain with walking Short Term Goal (STG patient is able to walk 30 min, with SPC, with 50% ) reduced pain One Impairment pain sit to stand Short Term Goal (STG patient has pain free sit to stand ) STG Duration 6 weeks Assessment Summary Assessment Pt showed good effort during ther ex today, reviewed hip abd/add machine today for comfort, cues for slower pace muscle effort control abduction & adduction with education awareness of LS PPT&TA draw in to decreased LS compensation arching and no LS irritation. Pt good response and feels can return to using these machines at gym again after trial today, improved PPT TA/ slow pacing corrections. Incorported resisted STS and stepping and cues for slow pacing WBOS stepping, NBOS knees only STS for muscular strength support for decreased UE support. Physical Therapy Plan Frequency and Duration Frequency of 2x/Week Treatment Duration of 6 treatment (weeks) Plan of Care Start 09/07/24 Date Plan of Care End 12/12/24 Date Therapeutic Interventions Therapeutic Balance Training,Coordination Training,Gait Training, Interventions Home Exercise Program,Joint Mobilizations,Manual Therapy,Neuromuscular Re-education,Orthotic/Prosthetic Management,Patient/Caregiver Education,Self-Care/Home Management,Therapeutic Activities,Therapeutic Exercises Modalities Biofeedback,Electric Stimulation,Hot Packs,Ultrasound Next Visit Focus/Plan Next Note Type Treatment Note Next Visit Plan Recheck corner balance for self home/gym and progress tandem HTs and SLS, recheck hurdles for hip AROM and balance. POC: Nu step shuttle shuttle balance HEP review and progression
--- NOTE | 2024-10-09 12:16 | PT.OTN ---
Current Diagnoses Other chronic pain (10/09/24) Unilateral primary osteoarthritis, right hip (10/09/24) Pain in right hip (10/09/24) Physical Therapy Treatment Note PT OP: Lower Back/Lower Extremity Start: 09/07/24 09:51 Freq: Status: Active Protocol: Document 10/09/24 11:36 SP (Rec: 10/09/24 12:34 SP [id number]) Out-Patient Physical Therapy Visit Information Visit Information Visit Type Treatment Note Visit Start Time 11:36 Visit Stop Time 12:16 Visit Number 6 Number of LOOM SETTER FOURDRINIER Visits 4 Progress Note Due 10/12/24 Evaluation Information Evaluation Date 09/07/24 Precautions Precautions R Eye prosthetic. Vital Signs Comments Vital Signs Comments Vitals after bike: (L UE autmated) BP 131/60 , HR 70 OP-PT Subjective Patient Comments Patient Comments Pt reports did alot cooking. HE states getting better, more stamina and able stand on feet longer like 2-3 hrs before feel upper R thigh and need to sit/rest. He worked out on thigh machines at gym. He is doing hooklying stretch that PT gave him, DKTC, piriformis stretch warm up before. He might go to gym after PT and do some upper body: shld press, pull down, curls, etx. Cardio Equipment Recumbent Stepper (Sci-Fit) Duration (Minutes) 6 Resistance 3.5 Seat Position 14 Other BUEs&BLEs then occasional BLEs only 2 min: 60 RPMs, 0. 97 miles Therapeutic Exercises Standing Exercises Resisted Stepping Standing Exercise REviewed: fwd, bwd, lateral Name Side bilateral Resistance Tb #3 around shins Equipment Used S Reps/Minutes 10 ft x laps each direction Comments cued tall, slower pacing, eccentric stepping Neuro Re-Education Treatment Balance Activities dynamic stepping Details fwd with HTs, bwd, tandem fwd Equipment rail PRN during tandem Reps/Duration hallway stepping 50 ft x2 laps each Comments cued rhomboid and TA draw in with CHARO feet away from each other, improved stability step up/back down Details 4# leg wt Surface foam on floor and top 6 step Reps/Duration 5 reps lead each LE FOam cone taps Details 4 step taps, 4# leg wt Surface marble foam Equipment //bars PRN Reps/Duration 10 reps each side Comments alternating Hurdles Details forward & lateral Surface CGA> close SBA, Min cues for safety pacing and foot clearance Equipment 6 hurdles no foam then added foam, RPN rail Reps/Duration 3 laps floor, 3 laps foam fwd; lateral foam x3 Comments cued R LE hip& knee flexion ROM clearance, R heel LE leading caught slick couple times but self rail support recovery. Cued slower pace with soft stepping improved stability, L heel caught slick x2, cued increase stride and decrease RLe circumduction. He noted better stability SLS time if R hip IR neutral. SLS Details next Self-Care/Home Management Treatment Education Patient Education Body Mechanics,Posture,Safety Other Education Discussed rhomboid fac for postural elevation during balance activities and resisted stepping to improve stability and strength. Physical Therapy Assessment Goals Three Impairment lack of HEP Short Term Goal (STG patient demonstrates indep with HEP ) STG Duration 6 weeks Two Impairment pain with walking Short Term Goal (STG patient is able to walk 30 min, with SPC, with 50% ) reduced pain One Impairment pain sit to stand Short Term Goal (STG patient has pain free sit to stand ) STG Duration 6 weeks Assessment Summary Assessment Pt improved SLS time stability and reported good hip ER tiring effort during resisted stepping and carryover balance activities as a result of cues for hip IR and feet parallel, posture over CHARO. Physical Therapy Plan Frequency and Duration Frequency of 2x/Week Treatment Duration of 6 treatment (weeks) Plan of Care Start 09/07/24 Date Plan of Care End 12/12/24 Date Therapeutic Interventions Therapeutic Balance Training,Coordination Training,Gait Training, Interventions Home Exercise Program,Joint Mobilizations,Manual Therapy,Neuromuscular Re-education,Orthotic/Prosthetic Management,Patient/Caregiver Education,Self-Care/Home Management,Therapeutic Activities,Therapeutic Exercises Modalities Biofeedback,Electric Stimulation,Hot Packs,Ultrasound Next Visit Focus/Plan Next Note Type Treatment Note Next Visit Plan Recheck corner balance for self home/gym and progress tandem HTs and SLS, recheck hurdles for hip AROM and balance. POC: Nu step shuttle shuttle balance HEP review and progression
--- NOTE | 2024-10-11 12:16 | PT.OTN ---
Current Diagnoses Other chronic pain (10/11/24) Unilateral primary osteoarthritis, right hip (10/11/24) Pain in right hip (10/11/24) Physical Therapy Treatment Note PT OP: Lower Back/Lower Extremity Start: 09/07/24 09:51 Freq: Status: Active Protocol: Document 10/11/24 11:35 SP (Rec: 10/11/24 12:37 SP [id number]) Out-Patient Physical Therapy Visit Information Visit Information Visit Type Treatment Note Visit Start Time 11:35 Visit Stop Time 12:16 Visit Number 7 Number of TRADE ANALYST Visits 5 Progress Note Due 10/12/24 Evaluation Information Evaluation Date 09/07/24 Precautions Precautions R Eye prosthetic. Vital Signs Comments Vital Signs Comments Vital: not taken today 10/11/24 OP-PT Subjective Patient Comments Patient Comments Pt reports did leg press at gym yesterday and used ball between knees too, is doing well with ab/add machine but needed to lower weight less than did in past at gym . Gym Equipment Shuttle Recovery Unilateral Squat Details R unlock, allow flexion range can do, cued not forceful ext >fluid mov't Resistance 50#>62# R (2 navy); 75# L (2 navy/1 teal)- *add 3 navy next time Reps/Time 20 reps each Bilateral Squat Details cued slower eccentric pacing flexion not hard block, not lock knees ext. Resistance 75#>150# (3 navy 3 teal) Reps/Time 20 reps- good muscle tiring for his ability Shuttle Balance Red Details WBOS, Stride Stance Reps/Duration 5 min Comments wt shift stationary & HTs CG/Min A- cued rhomoboid, core engagment improved midline corrections Sport Cord black band Exercise Details bwd, fwd, lateral R and L and step up/back down Reps/Duration 5 reps each, 2 sets step up/back down Comments cued slower pacing and eccentric control, called out proper stepping for lead up/down same leg for safety patterning. CGA-5%A Therapeutic Exercises Sitting Exercises LAQ Sitting Exercise trialed- pt reported ortho told him not perform so not Name irritate knee jts. Side bilateral Resistance AROM Reps/Minutes 5-10 sec hold- 3 reps- felt fine, no pain or strain Comments cued TKE quad engagement Clamshell Sitting Exercise added to HEP with Name Side bilateral Resistance Tb #3 around thighs Reps/Minutes 60 sec x1-2 sets Comments good hip abd tiring Standing Exercises 4 way hip Standing Exercise discussion self HEP at gym with cables Name Side bilateral Equipment Used states holds onto rail Comments cued tall posture, core fac and only hip muscle engagment, not LB compensat Resisted Stepping Standing Exercise REviewed: fwd, bwd, lateral Name Side bilateral Resistance Tb #3 around shins> ankles (personal band brought) Equipment Used Mod I Reps/Minutes 10 ft x laps each direction Comments cued tall, slower pacing, eccentric stepping heel toe fwd, toe heel bwd sit to stand Standing Exercise reviewed Name Side bilateral Resistance TB #3 around thighs Reps/Minutes 10 reps Comments stand with exhale Neuro Re-Education Treatment Balance Activities dynamic stepping Details fwd& bwd HTs; tandem fwd & bwds ( no head turn); EC fwd & bwd CG/Min A Equipment rail PRN during tandem Reps/Duration hallway stepping 50 ft x2 laps each Comments Fwd metronome 101 bpm, 93bpm backward with HTs, Tandem fwd -Cued rhomboid and TA draw in with CHARO feet away from each other with slower pacing during tandem, improved stability. Cued slow pacing shoulders over pelvis during EC walking improved midline stab. Physical Therapy Assessment Goals Three Impairment lack of HEP Short Term Goal (STG patient demonstrates indep with HEP ) STG Duration 6 weeks Two Impairment pain with walking Short Term Goal (STG patient is able to walk 30 min, with SPC, with 50% ) reduced pain One Impairment pain sit to stand Short Term Goal (STG patient has pain free sit to stand ) STG Duration 6 weeks Assessment Summary Assessment Pt improved effort against resisted ther ex today able to increased resisted side stepping and carry over traveling in open area with sport cord. Noted improved midline postural corrections after cuing education elongaged posture, rhomboid and core engagemment over stance LE support during resisted ther ex and balance activities today. Physical Therapy Plan Frequency and Duration Frequency of 2x/Week Treatment Duration of 6 treatment (weeks) Plan of Care Start 09/07/24 Date Plan of Care End 12/12/24 Date Therapeutic Interventions Therapeutic Balance Training,Coordination Training,Gait Training, Interventions Home Exercise Program,Joint Mobilizations,Manual Therapy,Neuromuscular Re-education,Orthotic/Prosthetic Management,Patient/Caregiver Education,Self-Care/Home Management,Therapeutic Activities,Therapeutic Exercises Modalities Biofeedback,Electric Stimulation,Hot Packs,Ultrasound Next Visit Focus/Plan Next Note Type Treatment Note Next Visit Plan Recheck corner balance for self home/gym and progress tandem HTs and SLS, recheck hurdles for hip AROM and balance. POC: Nu step shuttle progresss shuttle balance trial EC HEP review and progression
--- NOTE | 2024-10-18 11:44 | PT.OPPN ---
Current Diagnoses Other chronic pain (10/18/24) Unilateral primary osteoarthritis, right hip (10/18/24) Pain in right hip (10/18/24) Physical Therapy Progress Note PT OP: Lower Back/Lower Extremity Start: 09/07/24 09:51 Freq: Status: Active Protocol: Document 10/18/24 11:32 KW (Rec: 10/18/24 11:43 KW Laptop) Out-Patient Physical Therapy Visit Information Visit Information Visit Type Progress Note Visit Start Time 11:30 Visit Stop Time 12:10 Visit Number 8 Progress Note Due 11/17/24 Precautions Precautions R Eye prosthetic. OP-PT Subjective Patient Comments Patient Comments feeling about 60% improved likes the balance exercises as well as the original stretches OP-PT Pain Assessment Location R knee Pain Intensity 4 Scale Used Numeric (0 - 10) Description Aching Frequency Frequent R hip Pain Intensity 4 Scale Used Numeric (0 - 10) Description Aching,Chronic,Cramping,Pinching,Sharp Balance Tests Mejia Balance Test Mejia Balance Test 45 Score Mejia Impairment 1 to 19% Impaired (Score 45-55) Rating Romberg Romberg negative Single Limb Standing Single Limb- Right 3 Single Limb- Left 2 Semi-Tandem Standing Semi-Tandem Standing unable Balance Manual Assessments Soft Tissue Assessment Soft Tissue Mobility tight posterior hip Assessment Joint Mobility Assessment Joint Mobility (+) Hip Scour, anterior impingement - improved Assessment Stair Climbing Evaluation Evaluation Level of Assist On Independent Stairs Devices Stair Climbing None Assistive Devices Technique/Endurance Stair Climbing Ascend and Descend Direction Stair Climbing Step Over Step Technique Comments Stair Climbing 50% of time step over step coming down Comments Hip Goniometric Range of Motion Hip Measured in Degrees right Hip ROM WFL No Testing Position Supine Flexion w/Knee 95 Flexed Straight Leg Raise 68 Extension 0 Internal Rotation 7 External Rotation 28 Comments stiffness at end-range - improved Hip Strength Hip Manual Muscle Testing Right Flexion (L2) 4- Good- Extension (S1) 4- Good- Abduction 4- Good- Adduction 4- Good- External Rotation 4- Good- Internal Rotation 4- Good- Cardio Equipment Recumbent Stepper (Sci-Fit) Duration (Minutes) 6 Resistance 3.5 Seat Position 14 Other BUEs&BLEs then occasional BLEs only 2 min: 60 RPMs, 0. 97 miles Gym Equipment Cable Column (Body Solid) adduction Details hip range #3 Resistance 4 plates Reps/Time 20 reps abduction Details hip range #5, cued slow muscle engage, PPT with TA, not momentum press LS Resistance 4 plates Reps/Time 20 reps Shuttle Recovery Unilateral Squat Details R unlock, allow flexion range can do, cued not forceful ext >fluid mov't Resistance 50#>62# R (2 navy); 75# L (2 navy/1 teal)- *add 3 navy next time Reps/Time 20 reps each Bilateral Squat Details cued slower eccentric pacing flexion not hard block, not lock knees ext. Resistance 75#>150# (3 navy 3 teal) Reps/Time 20 reps- good muscle tiring for his ability Shuttle Balance Red Details WBOS, Stride Stance Reps/Duration 5 min Comments wt shift stationary & HTs CG/Min A- cued rhomoboid, core engagment improved midline corrections Sport Cord black band Exercise Details bwd, fwd, lateral R and L and step up/back down Reps/Duration 5 reps each, 2 sets step up/back down Comments cued slower pacing and eccentric control, called out proper stepping for lead up/down same leg for safety patterning. CGA-5%A Therapeutic Exercises Supine Exercises bridge Supine Exercise Name supine bridging Side bilateral Equipment Used Isometric pull down (arms at chest range, CREDIT CARD CONTROL CLERK hold back OH) Reps/Minutes 10 resps bridge with TA Comments cued slow pace and feet little closer to buttocks for dec HS cramp stretching Supine Exercise Name Single: 1. piriformis stretch 2. hamstring stretch Side bilateral Resistance AAROM: Equipment Used 1. towel roll anterior hip then with opp UE/opp LE str2 . grasp behind thigh Reps/Minutes 60 sec x2 each LE, each stretch Comments Supine then instructed seated for carryover ease gym too with HO. Sitting Exercises LAQ Sitting Exercise trialed- pt reported ortho told him not perform so not Name irritate knee jts. Side bilateral Resistance AROM Reps/Minutes 5-10 sec hold- 3 reps- felt fine, no pain or strain Comments cued TKE quad engagement Clamshell Sitting Exercise added to HEP with Name Side bilateral Resistance Tb #3 around thighs Reps/Minutes 60 sec x1-2 sets Comments good hip abd tiring Standing Exercises 4 way hip Standing Exercise discussion self HEP at gym with cables Name Side bilateral Equipment Used states holds onto rail Comments cued tall posture, core fac and only hip muscle engagment, not LB compensat Resisted Stepping Standing Exercise REviewed: fwd, bwd, lateral Name Side bilateral Resistance Tb #3 around shins> ankles (personal band brought) Equipment Used Mod I Reps/Minutes 10 ft x laps each direction Comments cued tall, slower pacing, eccentric stepping heel toe fwd, toe heel bwd sit to stand Standing Exercise reviewed Name Side bilateral Resistance TB #3 around thighs Reps/Minutes 10 reps Comments stand with exhale Physical Therapy Assessment Rehab Potential Rehabilitation Fair Potential Evaluation Complexity Number of Personal 3 or More Factors/ Comorbidities Number of Body 3 Systems Impaired Clinical Evolving Presentation at Evaluation Impairments Impairments Activity Tolerance,Balance,Functional Activities, Functional Mobility,Gait,Pain,Posture,ROM,Soft Tissue Mobility,Strength,Transfers Goals Three Impairment lack of HEP Short Term Goal (STG patient demonstrates indep with HEP ) STG Duration 6 weeks Two Impairment pain with walking Short Term Goal (STG patient is able to walk 30 min, with SPC, with 50% ) reduced pain One Impairment pain sit to stand Short Term Goal (STG patient has pain free sit to stand ) STG Duration 6 weeks Progress Towards Goals Progress Towards Progressing Toward Goals Goals Assessment Summary Assessment making nice improvement with ROM, strength, mobility, balance. Recommend continued PT Physical Therapy Plan Frequency and Duration Frequency of 2x/Week Treatment Duration of 6 treatment (weeks) Plan of Care Start 09/07/24 Date Plan of Care End 12/12/24 Date Next Visit Focus/Plan Next Note Type Treatment Note Next Visit Plan Recheck corner balance for self home/gym and progress tandem HTs and SLS, recheck hurdles for hip AROM and balance. POC: Nu step shuttle progresss shuttle balance trial EC HEP review and progression
--- NOTE | 2024-10-25 12:31 | PT.OTN ---
Current Diagnoses Other chronic pain (10/25/24) Unilateral primary osteoarthritis, right hip (10/25/24) Pain in right hip (10/25/24) Physical Therapy Treatment Note PT OP: Lower Back/Lower Extremity Start: 09/07/24 09:51 Freq: Status: Active Protocol: Document 10/25/24 10:47 AB (Rec: 10/25/24 12:04 AB [id number]) Out-Patient Physical Therapy Visit Information Visit Information Visit Type Treatment Note Visit Note [email or web address] Access Code: [email or web address] Visit Start Time 11:34 Visit Stop Time 12:20 Visit Number 9 Number of LOCAL TELEPHONE OPERATOR Visits 1 Progress Note Due 11/17/24 Precautions Precautions R Eye prosthetic. OP-PT Subjective Patient Comments Patient Comments Arian reports he is better, but still feels he has a way to go, reports he can stand longer in one place, and it doesn't get as painful. Arian rates pain 02/16 R illiopsoas area. Therapeutic Exercises Supine Exercises stretching Supine Exercise Name Mod Steve stretch Side right Reps/Minutes 60 sec and X 10 knee flexion Comments verbal cues Sitting Exercises Clamshell Sitting Exercise added to HEP with Name Side bilateral Resistance Tb #3 around thighs , level 4 blue band Reps/Minutes 60 sec x1 each band Comments Pt ed rationale of this ex for inc SLS Standing Exercises Pallof press Standing Exercise HEP Name Side bilateral Resistance level 4 band Reps/Minutes X 10 Comments verbal cues, pt ed rationale of this ex for spine rotators/multifidi bilateral heel raise Standing Exercise on stairs HEP Name Reps/Minutes X 10 Comments verbal cues to lower slowly calf stretch Standing Exercise on stairs HEP gastroc only Name Side bilateral Reps/Minutes gastroc 60 sec X 2, soleus trial not completed due to sensation ant ankle Comments verbal cues sit to stand Standing Exercise reviewed hip hinge Name Reps/Minutes X 4 Comments verbal cues for inc hip hinge and to avoid excessive toeing out Manual Therapy Treatment Consent Patient gave verbal Yes consent for manual treatment Soft Tissue Mobilization R illiopsoas Mobilization Type Cross-Friction,Rolling Intensity/Depth Moderate Body Position Hooklying Neuro Re-Education Treatment Balance Activities SLS Details hands above counter with and without head turns Reps/Duration 3 min Comments distant supervision post initially with supervision Physical Therapy Assessment Goals Three Impairment lack of HEP Short Term Goal (STG patient demonstrates indep with HEP ) STG Duration 6 weeks Two Impairment pain with walking Short Term Goal (STG patient is able to walk 30 min, with SPC, with 50% ) reduced pain One Impairment pain sit to stand Short Term Goal (STG patient has pain free sit to stand ) STG Duration 6 weeks Assessment Summary Assessment Significant inc in SLS L and R LE post glute med activations. Physical Therapy Plan Frequency and Duration Frequency of 2x/Week Treatment Duration of 6 treatment (weeks) Plan of Care Start 09/07/24 Date Plan of Care End 12/12/24 Date Next Visit Focus/Plan Next Note Type Treatment Note Next Visit Plan Recheck corner balance for self home/gym and progress tandem HTs and SLS, recheck hurdles for hip AROM and balance. POC: Nu step shuttle progresss shuttle balance trial EC HEP review and progression
--- NOTE | 2024-10-30 09:47 | PT.OTN ---
Current Diagnoses Other chronic pain (10/30/24) Unilateral primary osteoarthritis, right hip (10/30/24) Pain in right hip (10/30/24) Physical Therapy Treatment Note PT OP: Lower Back/Lower Extremity Start: 09/07/24 09:51 Freq: Status: Active Protocol: Document 10/30/24 09:09 SP (Rec: 10/30/24 10:28 SP [id number]) Out-Patient Physical Therapy Visit Information Visit Information Visit Type Treatment Note Visit Note SPTA Jalyn assisted with balloon volley with pt while PHYSICIAN OFFICE ASSISTANT provided stabiltiy and instruction by RUPINDER Barnes with patient permission. Visit Start Time 09:09 Visit Stop Time 09:47 Visit Number 10 Number of PHYSICIAN OFFICE ASSISTANT Visits 2 Progress Note Due 11/17/24 Evaluation Information Evaluation Date 09/07/24 Precautions Precautions R Eye prosthetic. OP-PT Subjective Patient Comments Patient Comments Pt reports does exercises daily just not all of them. Wants to revisit the corner balance tandem and SLS for confidence home. Cardio Equipment Recumbent Elliptical (NuStep) Duration (Minutes) 6 Resistance 5 Seat Position 11 Other BUEs/ BLEs, 96-99 RPMs, 566 steps Gym Equipment Shuttle Recovery Unilateral Squat Details R unlock, allow flexion range can do, cued not forceful ext >fluid mov't Resistance 75# Reps/Time 10 repsx2 Bilateral Squat Details cued slower pacing, ball between knees Resistance 125# Reps/Time 10 reps x2- good muscle tiring for his ability Shuttle Balance Red Details NBOS, narrow (4s) Stride Stance, initiated WBOS balloon volley Reps/Duration 5 min Comments wt shift stationary & HTs CG/Min A- improved self rhomoboid, core engagment improved midline corrections Neuro Re-Education Treatment Balance Activities dynamic stepping Details close SBA fwd, CGA- 5%A x1 instance backward stepping Reps/Duration hallway stepping 50 ft x2 laps each Comments Fwd metronome 101 bpm, 93bpm fwd with HTs, 88bpm backward stepping. -improved midline stability without cuing and maintained candence stepping today. Cues for arm swing if feel stable, able 30% time during HTs. corner balance Details Corner balance: tandem, SL Surface carpet Equipment chair in front Reps/Duration 60 each tandem, 5-15 each SL Comments Cues for positioning, weight centered over feet. Pt turning head side to side during tandem. Physical Therapy Assessment Goals Three Impairment lack of HEP Short Term Goal (STG patient demonstrates indep with HEP ) STG Duration 6 weeks Two Impairment pain with walking Short Term Goal (STG patient is able to walk 30 min, with SPC, with 50% ) reduced pain One Impairment pain sit to stand Short Term Goal (STG patient has pain free sit to stand ) STG Duration 6 weeks Assessment Summary Assessment Pt improved midline stability and donna 93 bpm with forward walking head turns this tx, cues for arm swing, little challenge coordinating. Cued trunk more forward and COG over arch and forefoot too during back stepping due to 1 instance unsteady increased momentum not controlled 5%A recover. CUes for COG over CHARO heels to forefoot Norm for stability. Pt reported felt more confidence corner balance support there behind and chair front during balance activity and how carrys over to dynamic stepping. Physical Therapy Plan Frequency and Duration Frequency of 2x/Week Treatment Duration of 6 treatment (weeks) Plan of Care Start 09/07/24 Date Plan of Care End 12/12/24 Date Therapeutic Interventions Therapeutic Balance Training,Coordination Training,Gait Training, Interventions Home Exercise Program,Joint Mobilizations,Manual Therapy,Neuromuscular Re-education,Orthotic/Prosthetic Management,Patient/Caregiver Education,Self-Care/Home Management,Therapeutic Activities,Therapeutic Exercises Modalities Biofeedback,Electric Stimulation,Hot Packs,Ultrasound Next Visit Focus/Plan Next Note Type Treatment Note Next Visit Plan Assess SLS time next tx, progress hurdles for hip AROM and balance. POC: Nu step shuttle progresss shuttle balance trial EC HEP review and progression
--- NOTE | 2024-11-01 10:33 | PT.OTN ---
Current Diagnoses Other chronic pain (11/01/24) Unilateral primary osteoarthritis, right hip (11/01/24) Pain in right hip (11/01/24) Physical Therapy Treatment Note PT OP: Lower Back/Lower Extremity Start: 09/07/24 09:51 Freq: Status: Active Protocol: Document 11/01/24 09:50 LATONYA (Rec: 11/01/24 10:32 LATONYA [id number]) Out-Patient Physical Therapy Visit Information Visit Information Visit Type Treatment Note Visit Start Time 09:50 Visit Stop Time 10:30 Visit Number 11 Number of PROMOTIONAL MODEL Visits 0 Progress Note Due 11/17/24 Precautions Precautions R Eye prosthetic. OP-PT Subjective Patient Comments Patient Comments Patient reports his hips are feeling good today. No pain at the moment. Therapeutic Exercises Sitting Exercises Seated hip hinge Resistance 10# Equipment Used chair Reps/Minutes x20 Comments cues for hip IR HIp adduction machine Resistance 50# Reps/Minutes 2x10 Hip abduction machine Resistance 30# Equipment Used hip abduction machine Reps/Minutes 3x10 Comments Cues for full ROM Standing Exercises Posterior tap downs Side bilateral Equipment Used 6 step Reps/Minutes 2x10 each side sit to stand Resistance Squeezing ball between knee for external cues for hip IR Equipment Used blue ball Reps/Minutes 3x10 Physical Therapy Assessment Goals Three Impairment lack of HEP Short Term Goal (STG patient demonstrates indep with HEP ) STG Duration 6 weeks Two Impairment pain with walking Short Term Goal (STG patient is able to walk 30 min, with SPC, with 50% ) reduced pain One Impairment pain sit to stand Short Term Goal (STG patient has pain free sit to stand ) STG Duration 6 weeks Assessment Summary Assessment Treatment focused on hip strengthening, particularly with mechanics with knee-dominant squat movements. Cues were given with these movements for hip IR. Patient tolerated treatment well with no increases in pain levels. Plan next session to follow up on response to today's session and continue with plan of care. Physical Therapy Plan Frequency and Duration Frequency of 2x/Week Treatment Duration of 6 treatment (weeks) Plan of Care Start 09/07/24 Date Plan of Care End 12/12/24 Date Next Visit Focus/Plan Next Note Type Treatment Note Next Visit Plan Continue with hip strengthening and cues for hip IR. Consider adding hip IR isolation exercises
--- NOTE | 2024-11-06 10:35 | PT.OTN ---
Current Diagnoses Other chronic pain (11/06/24) Unilateral primary osteoarthritis, right hip (11/06/24) Pain in right hip (11/06/24) Physical Therapy Treatment Note PT OP: Lower Back/Lower Extremity Start: 09/07/24 09:51 Freq: Status: Active Protocol: Document 11/06/24 09:48 SP (Rec: 11/06/24 10:42 SP [id number]) Out-Patient Physical Therapy Visit Information Visit Information Visit Type Treatment Note Visit Note EVARISTO Gunderson observed tx with pt permission Visit Start Time 09:48 Visit Stop Time 10:35 Visit Number 11 Number of HOOKER OFF Visits 0 Progress Note Due 11/17/24 Precautions Precautions R Eye prosthetic. OP-PT Subjective Patient Comments Patient Comments Pt reports doing well with HEP but having R adductor discomfort at end of his walk recently and unsure why. He was able to meet a personal goal of standing to bake some scones over the weekend, at least couple hrs and did go to the gym and focused on legs for 40 min plus warm up. Gym Equipment Shuttle Recovery Unilateral Squat Details R unlocked, good form Resistance 75# Reps/Time 18 R, 20 L Bilateral Squat Details cued slower pacing, yellow ball between knees Resistance 125# Reps/Time 20- good muscle tiring Therapeutic Exercises Supine Exercises Adductor Stretch Supine Exercise Name butterfly Norm LEs Adductor Stretch- declined HO Side bilateral Reps/Minutes 60 sec hold bridge Supine Exercise Name supine bridging Side bilateral Equipment Used yellow ball between knees Reps/Minutes 15 resps bridge with TA Comments cued little more lift for glut engagment stretching Supine Exercise Name Mod Steve stretch Side right Equipment Used opp knee bent Reps/Minutes 60 sec and X 10 knee flexion Comments verbal cues Sidelying Exercises Hip IR Sidelying Exercise added to HEp reverse clamshell Name Side bilateral Resistance AROM Equipment Used 2 pillows between knees Reps/Minutes 15 rep each LE Comments little challenge weakness in range, cues not over recruit back and neck Sitting Exercises Hip IR Sitting Exercise 11/06/24 Name Side bilateral Resistance AROM Equipment Used mesh chair Comments not able unweight for reverse clamshell trial Standing Exercises HIp Flexor Stretch Standing Exercise added to HEP- declined HO Name Side bilateral Equipment Used UEs contact table Reps/Minutes 60 sec Comments cued upright posture, allow heel lift of back leg anterior hip fwd wt shift Adductor Stretch Standing Exercise side lunge adductor stretch- added to HEP- declined HO Name Side bilateral Equipment Used UEs contact table Reps/Minutes 60 sec Comments upright posture, angle pelvis needed for focused muscle fiber needed Manual Therapy Treatment Consent Patient gave verbal Yes consent for manual treatment Soft Tissue Mobilization Adductor Body Location R Mid/prox Adductor & quad Mobilization Type Myofascial Release Intensity/Depth Moderate Body Position Hooklying Comments Good feedback response broad Physical Therapy Assessment Goals Three Impairment lack of HEP Short Term Goal (STG patient demonstrates indep with HEP ) STG Duration 6 weeks Two Impairment pain with walking Short Term Goal (STG patient is able to walk 30 min, with SPC, with 50% ) reduced pain 11/06/24: he is walking around store about 30 min pushing cart and was able to stand cooking scones for at least 2 hrs. STG Duration progressing 11/06/24 One Impairment pain sit to stand Short Term Goal (STG patient has pain free sit to stand ) 11/06/24: 50 % better less pain sit to marble installer R adductor. STG Duration 6 weeks updated 11/06/24 Assessment Summary Assessment Pt good feedback response to manual to R adductor, adding various positions to his stretching for comfort. Pt reports his R inner thigh feels much better. Extra time spend find depth and positioning of added Hip IR strengthening, best SL. Physical Therapy Plan Frequency and Duration Frequency of 2x/Week Treatment Duration of 6 treatment (weeks) Plan of Care Start 09/07/24 Date Plan of Care End 12/12/24 Date Therapeutic Interventions Therapeutic Balance Training,Coordination Training,Gait Training, Interventions Home Exercise Program,Joint Mobilizations,Manual Therapy,Neuromuscular Re-education,Orthotic/Prosthetic Management,Patient/Caregiver Education,Self-Care/Home Management,Therapeutic Activities,Therapeutic Exercises Modalities Biofeedback,Electric Stimulation,Hot Packs,Ultrasound Next Visit Focus/Plan Next Note Type Treatment Note Next Visit Plan REview added hip IR SL POC: hip strengthening and cues for hip IR.
--- NOTE | 2024-11-08 12:59 | PT.OTN ---
Current Diagnoses Other chronic pain (11/08/24) Unilateral primary osteoarthritis, right hip (11/08/24) Pain in right hip (11/08/24) Physical Therapy Treatment Note PT OP: Lower Back/Lower Extremity Start: 09/07/24 09:51 Freq: Status: Active Protocol: Document 11/08/24 11:39 JZ (Rec: 11/08/24 12:16 LATONYA [id number]) Out-Patient Physical Therapy Visit Information Visit Information Visit Type Treatment Note Visit Start Time 11:35 Visit Stop Time 12:15 Visit Number 13 Number of BRUSH HOLDER INSPECTOR Visits 0 Progress Note Due 11/17/24 Precautions Precautions R Eye prosthetic. OP-PT Subjective Patient Comments Patient Comments Patient reports he went to the gym yesterday. He reports he used the leg press hip abductor and adduction machine, and flexion and extension machines. Therapeutic Exercises Sidelying Exercises Hip IR Sidelying Exercise added to HEp reverse clamshell Name Side bilateral Resistance AROM Equipment Used 2 pillows between knees Reps/Minutes 15 rep each LE Comments little challenge weakness in range, cues not over recruit back and neck Sitting Exercises Seated hip hinge Resistance 10# Equipment Used chair Reps/Minutes x20 Comments cues for hip IR HIp adduction machine Resistance 50# Reps/Minutes 2x10 Hip abduction machine Resistance 30# Equipment Used hip abduction machine Reps/Minutes 3x10 Comments Cues for full ROM Standing Exercises Adductor Stretch Standing Exercise side lunge adductor stretch- added to HEP- declined HO Name Side bilateral Equipment Used UEs contact table Reps/Minutes 60 sec Comments upright posture, angle pelvis needed for focused muscle fiber needed Posterior tap downs Side bilateral Equipment Used 6 step Reps/Minutes 2x10 each side sit to stand Resistance Squeezing ball between knee for external cues for hip IR Equipment Used blue ball Reps/Minutes 3x10 Comments cues for even stance, hip IR, and minimizing assistance with hands Physical Therapy Assessment Goals Three Impairment lack of HEP Short Term Goal (STG patient demonstrates indep with HEP ) STG Duration 6 weeks Two Impairment pain with walking Short Term Goal (STG patient is able to walk 30 min, with SPC, with 50% ) reduced pain 11/06/24: he is walking around store about 30 min pushing cart and was able to stand cooking scones for at least 2 hrs. STG Duration progressing 11/06/24 One Impairment pain sit to stand Short Term Goal (STG patient has pain free sit to stand ) 11/06/24: 50 % better less pain sit to lead engineer R adductor. STG Duration 6 weeks updated 11/06/24 Assessment Summary Assessment Treatment focused on continued lateral hip strengthening. Patient tolerated treatment well with no increases in pain levels. Continued focus on active hip IR. Plan to continue with plan of care and complete progress assessment within two weeks and consider discharge pending continued progress. Physical Therapy Plan Frequency and Duration Frequency of 2x/Week Treatment Duration of 6 treatment (weeks) Plan of Care Start 09/07/24 Date Plan of Care End 12/12/24 Date Next Visit Focus/Plan Next Note Type Treatment Note Next Visit Plan Continue with plan of care for two more visits then complete progress note and consider discharge pending continued improvement. 1
--- NOTE | 2024-11-14 17:56 | PT.OTN ---
Current Diagnoses Other chronic pain (11/14/24) Unilateral primary osteoarthritis, right hip (11/14/24) Pain in right hip (11/14/24) Physical Therapy Treatment Note PT OP: Lower Back/Lower Extremity Start: 09/07/24 09:51 Freq: Status: Active Protocol: Document 11/14/24 11:31 NBM (Rec: 11/14/24 12:24 NBM Laptop) Out-Patient Physical Therapy Visit Information Visit Information Visit Type Treatment Note Visit Note PN next visit 11/16/24. Visit Start Time 11:35 Visit Stop Time 12:15 Visit Number 14 Number of MANAGER SAS Visits 1 Progress Note Due 11/17/24 Evaluation Information Evaluation Date 09/07/24 Precautions Precautions R Eye prosthetic. OP-PT Subjective Patient Comments Patient Comments Arian reports no pain in the moment and it's taking me longer and longer to develop the pain. It hasn't been his hip lately as much as his inner thigh muscle bothering him, and he's been doing the new stretch for inner thigh. He would like to work on balance. Tuesday was Leg day and yesterday was Upper Body day at gym and he wonders about finishing PT soon as will be having surgery and they will have less time and he's doing better. Patient Reported Improving Progress Therapeutic Exercises Sidelying Exercises Hip IR Sidelying Exercise HEP review reverse clamshell Name Side right Resistance AROM Equipment Used 2 pillows between knees Reps/Minutes 15 rep each LE Comments small range, vc hip add then hip IR, breath. Sitting Exercises Seated hip hinge Resistance 10# Equipment Used chair Reps/Minutes x20 Comments cues for hip IR HIp adduction machine Resistance 50# Reps/Minutes 3x10 Comments cues for breathwork, constant tension Hip abduction machine Resistance 30# Equipment Used hip abduction machine Reps/Minutes 2x10 Comments Cues for full ROM, breathwork, constant tension Standing Exercises HIp Flexor Stretch Standing Exercise added to HEP- declined HO Name Side bilateral Equipment Used UEs contact table Reps/Minutes 60 sec Comments cued upright posture, allow heel lift of back leg anterior hip fwd wt shift Adductor Stretch Standing Exercise side lunge adductor stretch- added to HEP- declined HO Name Side bilateral Equipment Used UEs contact table Reps/Minutes 60 sec Comments upright posture, angle pelvis needed for focused muscle fiber needed sit to stand Standing Exercise unable to to perform without ball drop from seatback> Name mod to edge of seat Resistance Squeezing ball between knee for external cues for hip IR Equipment Used blue ball from edge of standard mesh chair Reps/Minutes 2x12 Comments cues for even stance, hip IR, ecc control and min assista with hands Neuro Re-Education Treatment Balance Activities corner balance Details Corner balance: SL, tandem - HEP review Surface carpet Equipment corner of training stairs w/ rail B Reps/Duration 30 ea, EO/EC, head turns Comments Cues for foot and head positioning, gluteal activation. Self-Care/Home Management Treatment Education Patient Education Home Exercise Program Other Education Verbal review full HEP. Discussion how to incorporate more balance practice safely into routine, as with while at bathroom sink or kitchen counter for hold prn. Physical Therapy Assessment Goals Three Impairment lack of HEP Short Term Goal (STG patient demonstrates indep with HEP ) STG Duration 6 weeks Two Impairment pain with walking Short Term Goal (STG patient is able to walk 30 min, with SPC, with 50% ) reduced pain 11/06/24: he is walking around store about 30 min pushing cart and was able to stand cooking scones for at least 2 hrs. 11/14/24: Pt reports able to go 9 minutes without pain on treadmill yesterday, and stopped due to fatigue not pain. STG Duration progressing 11/06/24 One Impairment pain sit to stand Short Term Goal (STG patient has pain free sit to stand ) 11/06/24: 50 % better less pain sit to carding utility tender R adductor. STG Duration 6 weeks updated 11/06/24 Assessment Summary Assessment Arian presents painfree today. Treatment focus on hip internal rotation activation, strengthening and balance . He requires cues for hip adduction prior to hip internal rotation for sidelying clamshell, for maintaining tension on Cable Column for hip adduction/ abduction, and for breathwork with exercises. Verbal review full HEP and discussion how to incorporate more balance practice safely into routine, as with while at bathroom sink or kitchen counter for hold prn. Pt expresses possibly ready for discharge to [facility] after next visit. Physical Therapy Plan Frequency and Duration Frequency of 2x/Week Treatment Duration of 6 treatment (weeks) Plan of Care Start 09/07/24 Date Plan of Care End 12/12/24 Date Therapeutic Interventions Therapeutic Balance Training,Coordination Training,Gait Training, Interventions Home Exercise Program,Joint Mobilizations,Manual Therapy,Neuromuscular Re-education,Orthotic/Prosthetic Management,Patient/Caregiver Education,Self-Care/Home Management,Therapeutic Activities,Therapeutic Exercises Modalities Biofeedback,Electric Stimulation,Hot Packs,Ultrasound Next Visit Focus/Plan Next Note Type Treatment Note Next Visit Plan PN next visit 11/16/24. POC: Continue with plan of care for two more visits then complete progress note and consider discharge pending continued improvement.
--- NOTE | 2024-11-16 13:52 | PT.OTN ---
Current Diagnoses Other chronic pain (11/16/24) Unilateral primary osteoarthritis, right hip (11/16/24) Pain in right hip (11/16/24) Physical Therapy Treatment Note PT OP: Lower Back/Lower Extremity Start: 09/07/24 09:51 Freq: Status: Active Protocol: Document 11/16/24 13:09 NBM (Rec: 11/16/24 13:52 NBM Laptop) Out-Patient Physical Therapy Visit Information Visit Information Visit Type Treatment Note Visit Note PN next visit 11/16/24. Visit Start Time 13:07 Visit Stop Time 13:45 Visit Number 14 Number of MACHINE SPREADER Visits 1 Progress Note Due 11/17/24 Precautions Precautions R Eye prosthetic. OP-PT Subjective Patient Comments Patient Comments Arian reports he was able to work 4 hours in kitchen following last PT session, yesterday he did pretty good too and made dinner, and this morning he's already worked out at the gym doing core and upper body. He's being more mindful of not holding breath with working out, and performing standing stretches each morning which seems to help. Patient Reported Improving Progress Therapeutic Exercises Sidelying Exercises Hip IR Sidelying Exercise HEP review reverse clamshell Name Side bilateral Resistance AROM Equipment Used 2 pillows between knees Reps/Minutes 15 rep each LE Comments initial cue hip add then hip IR, breath. Sitting Exercises HS stretch Sitting Exercise seated Hamstring stretch Name Side bilateral Equipment Used from standard height chair. Reps/Minutes 1' ea Comments Strong positive feedback response Seated hip hinge Resistance 10# Equipment Used chair Reps/Minutes x25 Comments cues for hip IR Standing Exercises HIp Flexor Stretch Standing Exercise HEP review Name Side bilateral Equipment Used UEs contact table Reps/Minutes 60 sec Comments cued upright posture, allow heel lift of back leg anterior hip fwd wt shift Adductor Stretch Standing Exercise side lunge adductor stretch- HEP review Name Side bilateral Equipment Used UEs contact table Reps/Minutes 60 sec Comments upright posture, angle pelvis needed for focused muscle fiber needed sit to stand Standing Exercise edge of seat 1. standard height 2. w/ 2 foam 3. Name standard ht w/ ball squeez Resistance Squeezing ball between knee for external cues for hip IR Equipment Used blue ball from edge of standard mesh chair Reps/Minutes 1. x7 2. x10 3. x5 (ball did not drop today) Comments cues for even stance, hip IR, ecc control Self-Care/Home Management Treatment Education Patient Education Home Exercise Program Other Education HEP review verbal and physical with emphasis on hip IR exercises and stretches in anticipation of discharge to [facility]. HEP handouts condensed and pt provided Exercise Log. Physical Therapy Assessment Goals Three Impairment lack of HEP Short Term Goal (STG patient demonstrates indep with HEP ) 11/16/24: Met STG Duration 6 weeks Two Impairment pain with walking Short Term Goal (STG patient is able to walk 30 min, with SPC, with 50% ) reduced pain 11/06/24: he is walking around store about 30 min pushing cart and was able to stand cooking scones for at least 2 hrs. 11/14/24: Pt reports able to go 9 minutes without pain on treadmill yesterday, and stopped due to fatigue not pain. 11/16/24: Pt reports he would be able to do this but no longer uses cane now. He does not hold on when using treadmill at gym and at most has done 9 minutes due to fatigue, not pain. STG Duration progressing 11/16/24 One Impairment pain sit to stand Short Term Goal (STG patient has pain free sit to stand ) 11/06/24: 50 % better less pain sit to supervisor stave finishing R adductor. 11/16/24: Pt does 7x STS painfree from standard height chair. STG Duration 6 weeks (Met 11/16/24) Progress Towards Goals Progress Towards Progressing Toward Goals,Goals Met Goals Assessment Summary Assessment Treatment focus on HEP review verbal and physical with emphasis on hip IR exercises and stretches in anticipation of discharge to [facility] with pt and PT discussion and agreement. HEP handouts condensed and pt provided Exercise Log. Physical Therapy Plan Frequency and Duration Frequency of 2x/Week Treatment Duration of 6 treatment (weeks) Plan of Care Start 09/07/24 Date Plan of Care End 12/12/24 Date Next Visit Focus/Plan Next Note Type Treatment Note Next Visit Plan PN next visit 11/16/24. POC: Continue with plan of care for two more visits then complete progress note and consider discharge pending continued improvement.
--- NOTE | 2024-11-19 11:25 | PT.OPDS ---
Current Diagnoses Other chronic pain (11/16/24) Unilateral primary osteoarthritis, right hip (11/16/24) Pain in right hip (11/16/24) Visit Care Team Role Provider Type Jacqui Harris DO Family Provider Physician Primary Care Provider Specialty: Family Practice Address: [address] [place] [address], [address] [place] [address], [id number] Email: [email or web address] Tootie Rosales PA-C Attending Provider Advanced Fountain Worker Referring Provider Specialty: Orthopedics Orthopedic Surgery Address: [address] [place] [address], [id number] Email: [email or web address] Visit Number Visit Number 15 Discharge Summary PT OP: Lower Back/Lower Extremity Start: 09/07/24 09:51 Freq: Status: Active Protocol: Document 11/16/24 14:20 LATONYA (Rec: 11/19/24 11:24 LATONYA [id number]) Out-Patient Physical Therapy Visit Information Visit Information Visit Type Discharge Summary Visit Start Time 13:07 Visit Stop Time 13:45 Visit Number 15 Number of KNOT CUTTER Visits 0 Progress Note Due 11/17/24 OP-PT Subjective Patient Comments Patient Comments Patient reports his GROC is over 70% and he feels comfortable continuing his gym program independently. Physical Therapy Assessment Goals Three Impairment lack of HEP Short Term Goal (STG patient demonstrates indep with HEP ) 11/16/24: Met STG Duration 6 weeks Two Impairment pain with walking Short Term Goal (STG patient is able to walk 30 min, with SPC, with 50% ) reduced pain 11/06/24: he is walking around store about 30 min pushing cart and was able to stand cooking scones for at least 2 hrs. 11/14/24: Pt reports able to go 9 minutes without pain on treadmill yesterday, and stopped due to fatigue not pain. 11/16/24: Pt reports he would be able to do this but no longer uses cane now. He does not hold on when using treadmill at gym and at most has done 9 minutes due to fatigue, not pain. 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 11/16/24: Pt does 7x STS painfree from standard height chair. STG Duration 6 weeks (Met 11/16/24) Assessment Summary Assessment Patient presenting to PT after 14 visits for R hip pain . Patient has made improvements in symptoms and has met his PT goals. Additionally, patient feels confident continue his program independently. Because of this, today will be patient's last formal PT session. Physical Therapy Plan Frequency and Duration Frequency of 2x/Week Treatment Duration of 6 treatment (weeks) Plan of Care Start 09/07/24 Date Plan of Care End 12/12/24 Date Next Visit Focus/Plan Next Visit Plan N/A - discharge today
== END 2024-11-21 09:40 | disposition home or self-care (01) ==
LOC: PHYS 13:00
PROVIDERS: Family Provider Family Medicine; PCP Family Medicine; Referring Provider Physician Assistant Surgical; Visit Provider Physician Assistant Surgical
DX: M25.551 Pain in right hip (principal); M16.11 Unilateral primary osteoarthritis, right hip; G89.29 Other chronic pain
CPT/HCPCS: 97110; 97112; 97140; 97162; 97535